=== PATIENT | male | born 1935 | race Caucasian/White ===

== ENCOUNTER 2020-10-03 09:49 | Day surgery (SDC) | payer MEDICARE, SELFPAY ==
--- NOTE | 2020-09-28 11:05 | EKG12_ITS ---
Test Reason : PRE OP Blood Pressure : / mmHG Vent. Rate : 053 BPM Atrial Rate : 053 BPM P-R Int : 254 ms QRS Dur : 132 ms QT Int : 454 ms P-R-T Axes : 052 040 021 degrees QTc Int : 426 ms Sinus bradycardia with 1st degree A-V block Right bundle branch block Abnormal ECG Confirmed by MAMI LAW, DONNA ([id number]), film and video editor CYDNEY HUGHES ([id number]) on 10/01/2020 12:29:19 PM Referred By: Raphael Peraza Confirmed By:DONNA BOLAÑOS MD
[2020-09-28 11:16] LABS: Hematocrit 39.7 % (40-54); Mean Corp Hgb Conc 32.7 g/dL (32-36); Mean Corpuscular Hgb 30.5 pg (27.0-32.0); Mean Corpuscular Volume 93.2 fL (80-94); Mean Platelet Vol. 11.7 fl (6.2-12.0); POSITIVE COUNT YES; Platelet Count 79 K/mm3 (150-450); RBC Distribution Width CV 13.6 % (11.6-14.6); RBC Distribution Width SD 46.2 fl (35.1-43.9); Red Blood Count 4.26 M/mm3 (4.6-6.2); White Blood Count 4.9 K/mm3 (4.4-11.0)
[2020-09-28 11:18] LABS: Scan Indicated on CBC? Y/N YES- FLAGS NOTED
[2020-09-28 11:27] LABS: International Normalized Ratio 1.3; Prothrombin Time (Protime)PT. 15.1 SECONDS (11.7-14.9)
[2020-09-28 11:28] LABS: Partial Thromboplast Time 33.4 Seconds (24.1-36.2)
[2020-09-28 11:36] LABS: Hemoglobin A1c 6.5 % (3.8-5.6)
[2020-09-28 11:52] LABS: ALB/GLOB Ratio 0.7 RATIO (0.9-2.4); AST(SGOT) 58 U/L (15-37); Alanine Aminotransfer ALT/SGPT 63 U/L (16-61); Alkaline Phosphatase 118 U/L (45-117); Anion Gap 3 (5-15); BUN 18 mg/dL (7-18); BUN/Creat Ratio 17.8 RATIO (10-20); Calcium,Total 8.7 mg/dL (8.5-10.1); Chloride 106 mmol/L (98-107); Creatinine, Serum 1.01 mg/dL (0.70-1.30); EST Glomerular Filtration Rate 75 mL/min (>60); Est Glom Filt Rate - Afr Amer 90 mL/min (>60); Globulin 4.1 g/dL (2.2-4.2); Glucose 96 mg/dL (74-106); Magnesium 1.8 mg/dL (1.6-2.6); Phosphorus 2.5 mg/dL (2.5-4.9); Potassium 3.7 mmol/L (3.5-5.1); Protein, Total 7.1 g/dL (6.4-8.2); Sodium Level 140 mmol/L (136-145)
[2020-10-03] VITALS (7 sets, daily range): BP systolic 140–174; BP diastolic 64–87; PULSE 52–69; RESP 16; TEMP 35.6–36.7; O2SAT 96–100; BMI 27.9
--- NOTE | 2020-10-03 | BLB_PTH ---
PATIENT: RENUKA CONLEY [place] [facility] [place][id number] AGE/SX: 85/M ROOM: RE10/03/[address]: Dr. Raphael Peraza MD : [id number] BED: DIS: 10/03/2020 SPEC #: [id number] RECD: 10/04/20 07:53 STATUS: KRISTIAN REDelicia #: [id number] ROXANN: 10/03/20 00:[address]: Raphael Peraza DEPT: SURGICAL PATHOLOGY RECD BY: Pj Woody ENTERED: 10/04/20 08:43 SP TYPE: TURB OTHR DR: Dr. Nicholas Woody MD Tissues: A - Urinary bladder, NOS B - Urinary bladder, NOS Procedures: Surgery Specimen Level IV Surgery Specimen Level V HEADER OPERATION: Cysto, transurethral resection bladder, [employer] PRE-OP DIAGNOSIS: Bladder mass TISSUE SUBMITTED: A ? Bladder tumor, B ? Deeper bladder muscle resection MICROSCOPIC DIAGNOSIS A. Bladder tumor, TUR: Papillary urothelial carcinoma. See cancer summary in the comment section. B. 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 Negative for malignancy. SJ:emelia 10/05/2020 COMMENT BLADDER CANCER (TUR) SUMMARY (including specimens A & B): Procedure: Transurethral resection of bladder (TURBT) Tumor site: Not specified Histologic type: Papillary urothelial carcinoma, invasive Histologic grade: Low grade (2/3) Tumor configuration: Papillary Muscularis propria presence: Muscularis propria (detrusor muscle) present and free of tumor (specimen B only). Lymphvascular invasion: Not identified Tumor extension: Tumor invades the lamina propria (subepithelial connective tissue). Additional pathologic findings: Chronic inflammation. The above summary is in compliance with [employer] (CAP) Cancer Protocols Checklist and [place] [employer] on Cancer (AJCC), Staging Manual, 8th Ed. Case has been reviewed in consultation with Dr. Garrett who concurs with the above diagnosis. IDC:AM MICROSCOPIC DESCRIPTION Slides are reviewed. GROSS DESCRIPTION A - Received in fixative is one container labeled with the patient's name and designated bladder tumor. The specimen consists of multiple irregular fragments of dempsey-brown soft tissue that in aggregate measure 7.5 x 3 x 0.3 cm. The entire specimen is submitted in three cassettes. B - Received in fixative is one container labeled with the patient's name and designated deeper bladder muscle resection. The specimen consists of a piece of dempsey soft tissue measuring 1 x 0.3 x 0.1 cm. The specimen is totally submitted in one cassette. / MARI:emelia 10/04/20 TC:0 CPT: 46409, 37406
[2020-10-03] MEDS: Lactated Ringers 1,000 ML 75 ML IV (10:20)
[2020-10-03 11:06] LABS: Bedside Glucose 151 mg/dL (70-110)
--- NOTE | 2020-10-03 13:29 | PCM.HP.STD ---
HPI - General HPI Narrative RENUKA CONLEY, is a 85 M who presents for transurethral resection of a large tumor seen on CAT scan. [facility] Medical History (Updated 10/03/20 @ 13:[address] Raphael Peraza MD) Cirrhosis Diabetes Former smoker Hypertension Leg cramps Restless legs TIA (transient ischemic attack) Wears glasses Home Medications Janumet 1 tab PO DAILY 09/26/20 [History Last Taken 10/02/20 09:00] amlodipine-benazepril 1 cap PO DAILY 09/26/20 [History Last Taken 10/03/20 08:00] atorvastatin 40 mg PO QHS 09/26/20 [History Last Taken 10/02/20 09:00] finasteride 5 mg PO DAILY 09/26/20 [History Last Taken 10/02/20 09:00] furosemide 20 mg PO QODAY 09/26/20 [History Last Taken 10/02/20 09:00] glimepiride 2 mg PO PRN PRN 09/26/20 [History Last Taken Unknown] nadolol 40 mg PO DAILY 09/26/20 [History Last Taken 10/03/20 08:00] triamterene-hydrochlorothiazid 1 cap PO DAILY 09/26/20 [History Last Taken 10/02/20 09:00] ciprofloxacin HCl [Cipro] 500 mg PO BID #10 tab 10/03/20 [Rx Last Taken Unknown] Allergy/AdvReac Type Severity Reaction Status Date / Time alfuzosin Allergy Other Verified 10/03/20 10:26 aspirin [ASA] Allergy Other Verified 10/03/20 10:26 ibuprofen Allergy Other Verified 10/03/20 10:26 BLOOD THINNERS Allergy Other Uncoded 10/03/20 10:26 Surgical History (Updated 09/26/20 @ 13:20 by Odalis Kline) History of coronary artery stent placement Hx of cardiac cath Hx of foot surgery Social History Smoking Status: Former smoker ROS Constitutional Constitutional: Denies chills, fever(s) or malaise Eyes Eyes: Denies blurry vision or change in vision ENT HEENT: Reports none Cardiovascular Cardiovascular: Denies chest pain or palpitations Respiratory/Chest Respiratory/Chest: Denies cough or shortness of breath with exertion Gastrointestinal Gastrointestinal: Denies abdominal pain, constipation or diarrhea Genitourinary Genitourinary: Reports hematuria Musculoskeletal Musculoskeletal: Denies back pain, joint stiffness or joint swelling Integumentary Integumentary: Denies dry skin, jaundice, lesions or rash Neurologic Neurologic: Denies confusion, syncope or weakness Psychiatric Psychiatric: Reports none; Denies anxiety or depression Endocrine Endocrinology: Denies excessive sweating, fatigue or flushing Hematologic/Lymphatic Hematologic/Lymphatic: Denies anemia, easy bleeding or easy bruising Vital Signs Vital Signs Vital Signs: 10/03/20 10:30 Temperature 98.1 F Temperature Source Temporal Pulse Rate 61 Respiratory Rate 16 Respiratory Pattern Normal Blood Pressure 160/64 H Blood Pressure Mean 96 Blood Pressure Source Monitor Blood Pressure Position Sitting Blood Pressure Location Right Arm Pulse Ox 100 Oxygen Delivery Method Room Air Physical Exam Const alert and oriented x3 General Appearance: cooperative HEENT normocephalic, head/scalp atraumatic, EAC's normal and TM's normal bilaterally Eyes PERRL and EOMs intact bilaterally Pupil: sluggish Neck no lymphadenopathy, supple and no JVD General: trachea midline Lymph Lymphatic: no lymphadenopathy noted, lymphedema and lymphadenopathy Resp normal respiratory effort, normal air movement and clear to auscultation bilaterally Cardio regular rate, regular rhythm and peripheral pulses 2+ throughout GI soft to palpation, non-tender and non-distended Extremity normal capillary refill and no clubbing, cyanosis or edema General Extremity: no tenderness to palpation of joints or extremities Skin no rashes or lesions noted General Skin Exam: turgor normal Lesions: no lesions Rashes: no rashes Neuro CN's II-XII intact bilaterally Speech: speech normal Motor Exam: strength 5/5 throughout; Negative for general weakness Psych thought process normal, cooperative and affect normal Appearance: appropriate Lab / Micro Data Result Diagrams: 09/28/20 10:55 09/28/20 10:55 Labs: Laboratory Results - last 24 hr 10/03/20 10:38 POC Glucose 151 H Assessment & Plan Assessment/Plan (1) Bladder tumor: Status: Acute Code(s): D49.4 - Neoplasm of unspecified behavior of bladder Plan: Plan to proceed with transurethral resection of a large bladder tumor.
--- NOTE | 2020-10-03 13:31 | PCM.DC ---
Discharge Instructions Outpatient Procedure Reason For Visit: CYSTO TURBT OLYMPUS Procedure: Urology Diet Discharge Diet: No restrictions Activity Discharge Activity: May not drive while taking narcotic pain medications. (for 3 days.) May shower in (days): 1 Dressing / Incision Call your doctor if your incision/area has: Continuous Slow Oozing, Increased Pain/ Swelling, Increased Redness and Foul Smelling Discharge Call your doctor if you observe: Fever of 101 or Higher, Numbness or Tingling, Shortness of breath, Dizziness, Calf discomfort and Uncontrolled pain Cleanse incision/area with: Keep Dressing Clean & Dry Follow Up Care Please Follow Up With: Raphael Peraza MD When: Call [phone] for an appointment Test Results: Test results from this visit will be discussed in further detail at your follow-up appointment, if applicable. Discharge Plan Admission Primary Reason for Your Visit: Transurethral section of bladder tumor Attending Provider: Raphael Peraza Primary Care Provider: Nicholas Woody Instructions Patient Instructions: Transurethral Bladder Tumor Resection Discharge Orders/Prescriptions Prescriptions: New ciprofloxacin HCl [Cipro] 500 mg tablet 500 mg PO BID Qty: 10 RF: 0 Continued atorvastatin 40 mg tablet 40 mg PO QHS RF: 0 amlodipine-benazepril 2.5-10 mg capsule 1 cap PO DAILY RF: 0 triamterene-hydrochlorothiazid 37.5-25 mg capsule 1 cap PO DAILY RF: 0 glimepiride 2 mg tablet 2 mg PO PRN PRN (Reason: DIABETES) RF: 0 nadolol 40 mg tablet 40 mg PO DAILY RF: 0 furosemide 20 mg tablet 20 mg PO QODAY RF: 0 finasteride 5 mg tablet 5 mg PO DAILY RF: 0 Janumet 50-500 mg tablet 1 tab PO DAILY RF: 0 Referrals: Nicholas Woody MD [Primary Care Provider] - Disposition Discharge Orders: Discharge Patient (Routine); Ordered 10/03/20 Ordered By: Dr. Raphael Peraza
[2020-10-03] MEDS: Cefazolin 2 GM in 0.9% Normal Saline 100 ML IV (13:33)
[2020-10-03] MEDS: Lactated Ringers 1,000 ML 100 ML IV ×2 (13:41→14:31)
--- NOTE | 2020-10-03 14:26 | PCM.OPRPT ---
Problems Associated Problem List Diagnoses (1) Bladder tumor: Report of Operation Date of Procedure: 10/03/20 Pre-Operative Diagnosis: Bladder mass Post-Operative Diagnosis: Same Surgery/Procedure Performed:: Transurethral resection of a large bladder mass Description of Surgical Findings:: Dr Peraza Patient presented to the hospital for treatment of a tumor that was found in the bladder with a very large bladder tumor. Patient understands is possible it may not be able to resect the entire tumor. Patient also understands is possible that the patient may need multiple procedures or more invasive procedures to cure him of this cancer. Patient was taken back to the operating room after smooth induction of anesthesia the patient was placed supine on the table. The patient was placed in dorsolithotomy position. The urethra and genitals prepped and draped in usual sterile fashion. He had a hypospadias. I went into the bladder with a 30 degree lens and a cystoscope and identified the tumor the tumor was about 6 centimeters in size and occupying mostly the right trigone, bladder neck and right lateral wall of the bladder. The right and left ureteral orifice were identified. The tumor was involved in the left ureteral orifice and used a wire to identify orfice to facilitate resection. I then placed the resectoscope and the bladder and resected the entire tumor down to the muscle. And then cauterized the resection base to obtained hemostasis. We then placed the catheter in the bladder and the patient was taken back to the PACU in stable condition. Type of Anesthesia: General Specimen's removed: bladder tumor and deep resection Drains: none Estimated Blood Loss (mL): minimal Complications none Admit VTE Documentation VTE Present on Admission: No VTE Mechan Device Prophylaxis: SCD's
[2020-10-03 14:51] LABS: Bedside Glucose 127 mg/dL (70-110)
[2020-10-03] MEDS: oxyCODONE 5 MG Tablet PO (16:25)
== END 2020-10-03 17:15 ==
LOC: SDC 09:51 → AC 09:51
PROVIDERS: Anesthesiology; PCP Family Medicine; Referring Provider Urology; Visit Provider Urology
PROC: 0TBB8ZZ Excision of Bladder, Via Natural or Artificial Opening Endoscopic (ICD-10-PCS; CPT 52240; principal; 2020-10-03 12:05)
DX: C67.9 Malignant neoplasm of bladder, unspecified (principal); I10 Essential (primary) hypertension; E11.9 Type 2 diabetes mellitus without complications; G25.81 Restless legs syndrome; K74.60 Unspecified cirrhosis of liver; Z86.73 Personal history of transient ischemic attack (TIA), and cerebral infarction without residual deficits; Z79.82 Long term (current) use of aspirin; Z79.84 Long term (current) use of oral hypoglycemic drugs; Z79.899 Other long term (current) drug therapy; Z87.891 Personal history of nicotine dependence
CPT/HCPCS: 52240; 36415; 80053; 82962; 83036; 83735; 84100; 85027; 85610; 85730; 88305; 88307; 93005; J7120; C1769; J2405

== ENCOUNTER 2020-10-04 04:51 | Emergency (ER) | payer MEDICARE, SELFPAY ==
[2020-10-03 10:30] VITALS: BMI 27.9
[2020-10-04 04:51] VITALS: BP 164/77; PULSE 74; RESP 18; TEMP 37.6; O2SAT 97; BMI 28.4
--- NOTE | 2020-10-04 04:55 | EDS_ITS ---
HPI History of Present Illness Chief Complaint: Complaint Informant: patient Narrative Narrative: Patient presents with acute urinary retention. He tells me he had a bladder procedure done yesterday morning. It appears per records he had a bladder tumor. He was able to urinate after the procedure so he was discharged home. He has not urinated since going home. He has small amount of urine that leaked out of the penis that was bloody. He is having some suprapubic pain. History is given mostly by the and the patient is very hard of hearing. He denies any nausea, vomiting, diarrhea or constipation. [facility] Medical History Cirrhosis Diabetes Former smoker Hypertension Leg cramps Restless legs TIA (transient ischemic attack) Wears glasses Home Medications Janumet 1 tab PO DAILY 09/26/20 [History Last Taken 10/02/20 09:00] amlodipine-benazepril 1 cap PO DAILY 09/26/20 [History Last Taken 10/03/20 08:00] atorvastatin 40 mg PO QHS 09/26/20 [History Last Taken 10/02/20 09:00] finasteride 5 mg PO DAILY 09/26/20 [History Last Taken 10/02/20 09:00] furosemide 20 mg PO QODAY 09/26/20 [History Last Taken 10/02/20 09:00] glimepiride 2 mg PO PRN PRN 09/26/20 [History Last Taken Unknown] nadolol 40 mg PO DAILY 09/26/20 [History Last Taken 10/03/20 08:00] triamterene-hydrochlorothiazid 1 cap PO DAILY 09/26/20 [History Last Taken 10/02/20 09:00] ciprofloxacin HCl [Cipro] 500 mg PO BID #10 tab 10/03/20 [Rx Last Taken Unknown] Allergy/AdvReac Type Severity Reaction Status Date / Time alfuzosin Allergy Other Verified 10/04/20 04:57 aspirin [ASA] Allergy Other Verified 10/04/20 04:57 ibuprofen Allergy Other Verified 10/04/20 04:57 BLOOD THINNERS Allergy Other Uncoded 10/04/20 04:57 Surgical History History of coronary artery stent placement Hx of cardiac cath Hx of foot surgery Social History Smoking Status: Former smoker ROS ROS ED Constitutional Constitutional ED: Denies chills or fever(s) Eyes Eyes: Denies blurry vision, change in vision or diplopia ENT ENT ED: Denies ear pain, rhinorrhea or sore throat Cardiovascular Cardiovascular: Denies chest pain or palpitations Respiratory/Chest Respiratory/Chest: Denies cough, dyspnea or sputum Gastrointestinal Gastrointestinal: Denies abdominal pain, diarrhea, nausea or vomiting Genitourinary Genitourinary ED: Reports other Details: Urinary retention Musculoskeletal Musculoskeletal: Denies back pain or neck pain Integumentary Denies change in pigmentation or rash Neurologic Neurologic: Denies headache(s), numbness or weakness Psychiatric Psychiatric: Denies anxiety or depression Endocrine Endocrinology: Denies polydipsia or polyuria EXAM Physical Exam Const Vital Signs: 10/04/20 04:51 Temperature 99.6 F H Temperature Source Temporal Pulse Rate 74 Respiratory Rate 18 Blood Pressure 164/77 H Blood Pressure Mean 106 Pulse Ox 97 Oxygen Delivery Method Room Air Positive well nourished and well developed General Appearance ED: well developed HEENT normocephalic and atraumatic Eyes PERRL and EOMs intact bilaterally Neck supple Resp normal respiratory effort and clear to auscultation bilaterally Cardio regular rate, regular rhythm and no murmurs GI Palpation: soft and tender suprapubic no CVA tenderness Back/Spine Cervical Spine: Negative for cervical spine tenderness Extremity normal to inspection General Extremety ED: Negative for tenderness Neuro oriented x3 Neuro Narrative: Hard of hearing Sensorium / Orientation: alert Psych mental status grossly normal Skin Lesions: no lesions Rashes: no rashes MDM MDM MDM Narrative Medical decision making narrative: Nursing as well as myself were unable to place the Tobar catheter. He has a known hypospadia per the dictation from the surgery by Dr. Peraza yesterday. However, I was unable to advance a catheter. I did discuss with Dr. Peraza and he graciously came into the emergency depa rtment and was able to place the catheter. Bloody urine returned without much clots. This will be irrigated until clear. The patient was unable to any medications. He is already on antibiotics from the surgery. He will have the Tobar catheter out next week. Discharge Plan Triage Chief Complaint: Complaint ED Provider: Stefan Harris Dx/Rx/DC Orders Clinical Impression: Acute urinary retention, Hematuria, gross Instructions: ED Tobar Catheter, Care Prescriptions: No Action atorvastatin 40 mg tablet 40 mg PO QHS RF: 0 amlodipine-benazepril 2.5-10 mg capsule 1 cap PO DAILY RF: 0 triamterene-hydrochlorothiazid 37.5-25 mg capsule 1 cap PO DAILY RF: 0 glimepiride 2 mg tablet 2 mg PO PRN PRN (Reason: DIABETES) RF: 0 nadolol 40 mg tablet 40 mg PO DAILY RF: 0 furosemide 20 mg tablet 20 mg PO QODAY RF: 0 finasteride 5 mg tablet 5 mg PO DAILY RF: 0 Janumet 50-500 mg tablet 1 tab PO DAILY RF: 0 ciprofloxacin HCl [Cipro] 500 mg tablet 500 mg PO BID Qty: 10 RF: 0 Primary Care Provider: Nicholas Woody Referrals: Raphael Peraza MD [STAFF PHYSICIAN] - Nicholas Woody MD [Primary Care Provider] - Disposition Disposition: Home, self care
== END 2020-10-04 06:31 | disposition home or self-care (01) ==
PROVIDERS: Emergency Provider Emergency Medicine; PCP Family Medicine
DX: R33.9 Retention of urine, unspecified (principal); R31.0 Gross hematuria; Z98.890 Other specified postprocedural states; I10 Essential (primary) hypertension; E11.9 Type 2 diabetes mellitus without complications; K74.60 Unspecified cirrhosis of liver; G25.81 Restless legs syndrome; Z86.73 Personal history of transient ischemic attack (TIA), and cerebral infarction without residual deficits; Z79.84 Long term (current) use of oral hypoglycemic drugs; Z79.899 Other long term (current) drug therapy; Z87.891 Personal history of nicotine dependence
CPT/HCPCS: 51702; 99283

== ENCOUNTER 2020-10-07 06:15 | Inpatient (IN) | payer MEDICARE, SELFPAY ==
[2020-10-07] VITALS (8 sets, daily range): BP systolic 131–168; BP diastolic 56–89; PULSE 62–76; RESP 14–18; TEMP 36.5–37.6; O2SAT 96–99; BMI 30.1; BMI 29.3
--- NOTE | 2020-10-07 06:31 | CT_ITS ---
STUDY: CT ABDOMEN AND PELVIS WITHOUT CONTRAST REASON FOR EXAM: Male, 85 years old. Pain RADIATION DOSAGE (If Supplied By Facility): CTDIvol = ( 10.73 ) mGy, DLP = ( 546.71 ) mGycm TECHNIQUE: Transaxial images were obtained from the dome of the diaphragm to the symphysis pubis without oral contrast, and without intravenous contrast. Sagittal and coronal images were reconstructed. Individualized dose optimization techniques were used for this CT. COMPARISON: None. FINDINGS: Subsegmental atelectases are noted in the right and left lung bases. The visualized portions of the heart are within normal limits. There is a diffuse contour abnormality of the liver consistent with cirrhotic changes. There are surgical clips in the gallbladder fossa consistent with a prior cholecystectomy. There is mild splenomegaly. Normal pancreas. Normal bilateral adrenal glands. Normal right kidney. Normal left kidney. Normal visualized stomach. Normal small intestine. Normal colon. There is non-visualization of the appendix. There is diffuse atherosclerotic calcification of the abdominal aorta, with 3 cm infrarenal abdominal aortic aneurysm. Normal inferior vena cava. Normal retroperitoneum. Normal urinary bladder. There is a left-sided inguinal hernia containing adipose tissue. Normal osseous structures. CT/Abdomen/Pelvis without Cont IMPRESSION: Liver cirrhosis with mild splenomegaly. Electronically Signed: Linda Vázquez MD at 7:41 EDT Tel , Service support ,
[2020-10-07 06:38] LABS: Absolute Lymphocyte Count 0.69 X10^3/uL (0.83-4.51); Absolute Neutrophil Count 7.1 X10^3/uL (2.0-7.7); Basophil# 0.03 X10^3/uL; Basophil% 0.3 % (0-1); Eosinophil# 0.11 X10^3/uL; Eosinophils% 1.2 % (0-5); Hematocrit 39.5 % (40-54); Hemoglobin 13.3 g/dL (13.0-16.5); Lymphocyte # 0.69 X10^3/ul (0.83-4.51); Lymphocyte % 7.7 % (19-41); Mean Corp Hgb Conc 33.7 g/dL (32-36); Mean Corpuscular Hgb 30.9 pg (27.0-32.0); Mean Corpuscular Volume 91.9 fL (80-94); Mean Platelet Vol. 11.7 fl (6.2-12.0); Monocyte# 0.98 X10^3/uL; NRBC Flagged by Analyzer 0 % (0-5); Neutrophil # 7.05 X10^3/uL (2.7-7.7); Neutrophil % 79.1 % (47-70); POSITIVE COUNT YES; Platelet Count 99 K/mm3 (150-450); RBC Distribution Width CV 13.5 % (11.6-14.6); RBC Distribution Width SD 45.6 fl (35.1-43.9); White Blood Count 8.9 K/mm3 (4.4-11.0)
[2020-10-07 06:39] LABS: Differential Indicated SCAN CRITERIA MET
[2020-10-07 06:42] LABS: Bacteria 0 SEEN /hpf (None Seen); Mucous, Urine 0 SEEN /hpf (<or=2+); Red Blood Cells-Urine 0 SEEN /hpf (0-5); Squamous Epithelial Cells - UA 0 SEEN /hpf (0-5); White Blood Cells 0 SEEN /hpf (0-5)
[2020-10-07 06:44] LABS: Color, Urine Yellow (Yellow); Glucose, Dipstick Normal (Normal); Ketone-Dipstick Negative (Negative); Leukocyte Esterase-Dipstick Negative /ul (Negative); Nitrite-Dipstick Negative (Negative); Occult Blood-Urine Negative /ul (Negative); Protein-Dipstick Negative (Negative); Urine Bilirubin Dipstick Negative (Negative); Urine Clarity Clear (Clear); Urine Urobilinogen Normal (Normal)
[2020-10-07] MEDS: Morphine 4 MG/ML Syringe IV (06:44)
[2020-10-07] MEDS: Ondansetron 4 MG/2 ML Vial IV (06:44)
[2020-10-07 06:50] LABS: ALB/GLOB Ratio 0.6 RATIO (0.9-2.4); AST(SGOT) 38 U/L (15-37); Alanine Aminotransfer ALT/SGPT 35 U/L (16-61); Albumin, Serum 2.7 g/dL (3.2-5.0); Alkaline Phosphatase 112 U/L (45-117); Anion Gap 6 (5-15); BUN 38 mg/dL (7-18); BUN/Creat Ratio 17.1 RATIO (10-20); Calcium,Total 8.7 mg/dL (8.5-10.1); Chloride 101 mmol/L (98-107); Creatinine, Serum 2.22 mg/dL (0.70-1.30); EST Glomerular Filtration Rate 30 mL/min (>60); Est Glom Filt Rate - Afr Amer 36 mL/min (>60); Estimated Creatinine Clearance 22.35 ml/min; Globulin 4.4 g/dL (2.2-4.2); Glucose 112 mg/dL (74-106); Lipase 93 U/L (73-393); Potassium 4.4 mmol/L (3.5-5.1); Protein, Total 7.1 g/dL (6.4-8.2); Sodium Level 134 mmol/L (136-145)
[2020-10-07 06:52] LABS: Platelet Estimate MOD DEC (ADEQ)
[2020-10-07 06:54] LABS: Lactic Acid 1.7 mmol/L (0.4-1.9)
--- NOTE | 2020-10-07 06:58 | ED.VIS.GI ---
HPI <Dr. Royal Trujillo DO - Last Filed: 10/07/20 07:04> HPI - GI History of Present Illness Chief Complaint: Abd Pain Informant: patient Limited: other (Patient is hard of hearing) Abdominal Pain/Flank Pain Onset: Yesterday Context: Gradual Onset Timing: Continuous Location: RUQ and Right Flank Worsened by: Nothing Relieved by: Nothing Nausea/Vomiting/Emesis GI Symptom: Negative for Nausea and Vomiting Diarrhea/Melena/Hematochezia GI Symptom: Negative for Diarrhea, Melena and Hematochezia Associated Symptoms Associated Symptoms: Negative for Dysuria and Hematuria Narrative Narrative: Patient presents with right upper quadrant and right flank pain that began yesterday. Patient describes the pain is sharp. Patient states the pain has been constant. Patient admits to decreased appetite and dry mouth. Patient denies any radiation of the pain. Patient denies any nausea or vomiting. Patient denies any diarrhea or constipation. Patient admits to a chronic cough but denies any chest pain or shortness of breath. Patient denies any fevers or chills. Patient states he was seen here couple days ago for urinary retention and currently has a Tobar catheter in place. [facility] <Dr. Royal Trujillo DO - Last Filed: 10/07/20 07:04> [facility] Medical History Cirrhosis Diabetes Former smoker Hard of hearing Hard of hearing Hypertension Leg cramps Restless legs TIA (transient ischemic attack) Wears glasses Home Medications Janumet 1 tab PO DAILY 09/26/20 [History Last Taken 10/02/20 09:00] amlodipine-benazepril 1 cap PO DAILY 09/26/20 [History Last Taken 10/03/20 08:00] atorvastatin 40 mg PO QHS 09/26/20 [History Last Taken 10/02/20 09:00] finasteride 5 mg PO DAILY 09/26/20 [History Last Taken 10/02/20 09:00] furosemide 20 mg PO QODAY 09/26/20 [History Last Taken 10/02/20 09:00] glimepiride 2 mg PO PRN PRN 09/26/20 [History Last Taken Unknown] nadolol 40 mg PO DAILY 09/26/20 [History Last Taken 10/03/20 08:00] triamterene-hydrochlorothiazid 1 cap PO DAILY 09/26/20 [History Last Taken 10/02/20 09:00] ciprofloxacin HCl [Cipro] 500 mg PO BID #10 tab 10/03/20 [Rx Last Taken Unknown] ascorbic acid (vitamin C) [Vitamin C] 100 mg PO DAILY 10/07/20 [History Last Taken Unknown] calcium carbonate-vitamin D3 [Calcium 500 With D] 1 tab PO BID 10/07/20 [History Last Taken Unknown] Allergy/AdvReac Type Severity Reaction Status Date / Time alfuzosin Allergy Other Verified 10/07/20 06:25 aspirin [ASA] Allergy Other Verified 10/07/20 06:25 ibuprofen Allergy Other Verified 10/07/20 06:25 BLOOD THINNERS Allergy Other Uncoded 10/07/20 06:25 Surgical History History of coronary artery stent placement Hx of cardiac cath Hx of foot surgery Social History Smoking Status: Former smoker ROS <Dr. Royal Trujillo DO - Last Filed: 10/07/20 07:04> ROS ED Constitutional Constitutional ED: Denies chills or fever(s) ENT ENT ED: Denies rhinorrhea or sore throat Cardiovascular Cardiovascular: Denies chest pain or palpitations Respiratory/Chest Respiratory/Chest: Reports cough; Denies dyspnea Gastrointestinal Gastrointestinal: Reports abdominal pain; Denies nausea or vomiting Genitourinary Genitourinary ED: Denies dysuria or hematuria Musculoskeletal Musculoskeletal: Reports back pain; Denies neck pain Integumentary Denies abscess or rash Neurologic Neurologic: Denies headache(s) or weakness Allergic/Immunologic Allergic/Immunologic ED: Denies mouth swelling or urticaria EXAM <Dr. Royal Trujillo DO - Last Filed: 10/07/20 07:04> Physical Exam Const Vital Signs: 10/07/20 06:17 10/07/20 06:22 Temperature 99.6 F H 99.6 F H Temperature Source Oral Oral Pulse Rate 65 65 Respiratory Rate 17 18 Blood Pressure 168/89 H 168/89 H Blood Pressure Mean 115 115 Pulse Ox 99 98 Oxygen Delivery Method Room Air Room Air Positive well nourished and well developed General Appearance ED: well developed HEENT Reports moist mucous membranes normocephalic Neck supple and no JVD Resp normal respiratory effort and clear to auscultation bilaterally Cardio regular rate and regular rhythm GI non-distended Auscultation: normoactive bowel sounds Palpation: soft and tender RUQ; Negative for guarding or rebound tenderness present Back/Spine General Back: CVA tenderness right Extremity General Extremety ED: Negative for edema or tenderness General Extremity: Negative for edema Neuro CN's II-XII intact bilaterally, moves all extremities and no sensory deficits noted Sensorium / Orientation: alert, oriented to person, oriented to place and oriented to time <Dr. Casimiro Ruiz MD - Last Filed: 10/07/20 08:59> Physical Exam Const Vital Signs: 10/07/20 06:17 10/07/20 06:22 Temperature 99.6 F H 99.6 F H Temperature Source Oral Oral Pulse Rate 65 65 Respiratory Rate 17 18 Blood Pressure 168/89 H 168/89 H Blood Pressure Mean 115 115 Pulse Ox 99 98 Oxygen Delivery Method Room Air Room Air MDM <Dr. Royal Trujillo DO - Last Filed: 10/07/20 07:04> MDM MDM Narrative Medical decision making narrative: CBC comprehensive metabolic profile were obtained and were essentially within normal limits. Creatinine was elevated at 2.22. This was increased compared to previous results. Lactate was normal. Urinalysis does not show any evidence of urinary tract infection. CT scan of the abdomen and pelvis was obtained and is pending. Care of the patient was turned over to the oncoming physician pending CT results. Patient will likely need to be admitted for acute kidney injury. I will contact the hospitalist. Lab Data Attestation: I reviewed the patient's lab results. Labs: Laboratory Results - last 24 hr 10/07/20 10/07/20 10/07/20 06:25 06:25 06:25 WBC 8.9 RBC 4.30 L Hgb 13.3 Hct 39.5 L MCV 91.9 MCH 30.9 MCHC 33.7 RDW Std Deviation 45.6 H RDW Coeff of Marlyn 13.5 Plt Count 99 L MPV 11.7 Immature Gran % (Auto) 0.700 Neut % (Auto) 79.1 H Lymph % (Auto) 7.7 L Gordon % (Auto) 11.0 H Eos % (Auto) 1.2 Baso % (Auto) 0.3 Absolute Neuts (auto) 7.1 Absolute Lymphs (auto) 0.69 L Nucleated RBC % 0 Platelet Estimate MOD DEC Sodium 134 L Potassium 4.4 Chloride 101 Carbon Dioxide 27.0 Anion Gap 6 BUN 38 H Creatinine 2.22 H Estim Creat Clear Calc 22.35 Est GFR (MDRD) Af Amer 36 L Est GFR (MDRD) Non-Af 30 L BUN/Creatinine Ratio 17.1 Glucose 112 H Lactic Acid 1.7 Calcium 8.7 Total Bilirubin 2.80 H AST 38 H ALT 35 Alkaline Phosphatase 112 Total Protein 7.1 Albumin 2.7 L Globulin 4.4 H Albumin/Globulin Ratio 0.6 L Lipase 93 Urine Color Urine Clarity Urine pH Ur Specific [place] Urine Protein Urine Glucose (UA) Urine Ketones Urine Occult Blood Urine Nitrite Urine Bilirubin Urine Urobilinogen Ur Leukocyte Esterase Urine RBC Urine WBC Ur Squamous Epith Cells Urine Bacteria Urine Mucus 10/07/20 06:35 WBC RBC Hgb Hct MCV MCH MCHC RDW Std Deviation RDW Coeff of Marlyn Plt Count MPV Immature Gran % (Auto) Neut % (Auto) Lymph % (Auto) Gordon % (Auto) Eos % (Auto) Baso % (Auto) Absolute Neuts (auto) Absolute Lymphs (auto) Nucleated RBC % Platelet Estimate Sodium Potassium Chloride Carbon Dioxide Anion Gap BUN Creatinine Estim Creat Clear Calc Est GFR (MDRD) Af Amer Est GFR (MDRD) Non-Af BUN/Creatinine Ratio Glucose Lactic Acid Calcium Total Bilirubin AST ALT Alkaline Phosphatase Total Protein Albumin Globulin Albumin/Globulin Ratio Lipase Urine Color Yellow Urine Clarity Clear Urine pH 6.0 Ur Specific [place] 1.010 Urine Protein Negative Urine Glucose (UA) Normal Urine Ketones Negative Urine Occult Blood Negative Urine Nitrite Negative Urine Bilirubin Negative Urine Urobilinogen Normal Ur Leukocyte Esterase Negative Urine RBC 0 SEEN Urine WBC 0 SEEN Ur Squamous Epith Cells 0 SEEN Urine Bacteria 0 SEEN Urine Mucus 0 SEEN Radiography Diagnostic Testing: Radiology Impression Abdomen/Pelvis CT 10/07/20 06:31 IMPRESSION: Liver cirrhosis with mild splenomegaly. Electronically Signed: Linda Vázquez MD at 7:41 EDT Tel , Service support , <Dr. Casimiro Ruiz MD - Last Filed: 10/07/20 08:59> [facility] MDM Narrative Medical decision making narrative: I took checkout on this patient reevaluated him. He is comfortable but states he does still have right lower quadrant pain, where he is tender. The rest of his abdomen is benign and nontender. CT results are below, basically consistent with cirrhosis that was already noted, and otherwise negative for anything acute. He does have acute kidney injury and it is somewhat of a prerenal pattern, indicating the possibility of dehydration here which would be consistent with his history of very little oral fluid intake since his surgery 4 days ago according to his . Of note he does have a significant amount of stool in the colon on the images although his colon is not radiographically abnormal. He has not had a bowel movement since his surgery. Discussed with hospitalist, we did give the patient an enema soapsuds here in emergency department but this was somewhat limited since the patient can barely hear, and had trouble following nursing instructions with regards to the enema. The rest of the labs were unremarkable, his total bilirubin elevation can be explained by his cirrhosis. Will be admitted to floor in stable condition. Lab Data Attestation: I reviewed the patient's lab results. Labs: Laboratory Results - last 24 hr 10/07/20 10/07/20 10/07/20 06:25 06:25 06:25 WBC 8.9 RBC 4.30 L Hgb 13.3 Hct 39.5 L MCV 91.9 MCH 30.9 MCHC 33.7 RDW Std Deviation 45.6 H RDW Coeff of Marlyn 13.5 Plt Count 99 L MPV 11.7 Immature Gran % (Auto) 0.700 Neut % (Auto) 79.1 H Lymph % (Auto) 7.7 L Gordon % (Auto) 11.0 H Eos % (Auto) 1.2 Baso % (Auto) 0.3 Absolute Neuts (auto) 7.1 Absolute Lymphs (auto) 0.69 L Nucleated RBC % 0 Platelet Estimate MOD DEC Sodium 134 L Potassium 4.4 Chloride 101 Carbon Dioxide 27.0 Anion Gap 6 BUN 38 H Creatinine 2.22 H Estim Creat Clear Calc 22.35 Est GFR (MDRD) Af Amer 36 L Est GFR (MDRD) Non-Af 30 L BUN/Creatinine Ratio 17.1 Glucose 112 H Lactic Acid 1.7 Calcium 8.7 Total Bilirubin 2.80 H AST 38 H ALT 35 Alkaline Phosphatase 112 Total Protein 7.1 Albumin 2.7 L Globulin 4.4 H Albumin/Globulin Ratio 0.6 L Lipase 93 Urine Color Urine Clarity Urine pH Ur Specific [place] Urine Protein Urine Glucose (UA) Urine Ketones Urine Occult Blood Urine Nitrite Urine Bilirubin Urine Urobilinogen Ur Leukocyte Esterase Urine RBC Urine WBC Ur Squamous Epith Cells Urine Bacteria Urine Mucus 10/07/20 06:35 WBC RBC Hgb Hct MCV MCH MCHC RDW Std Deviation RDW Coeff of Marlyn Plt Count MPV Immature Gran % (Auto) Neut % (Auto) Lymph % (Auto) Gordon % (Auto) Eos % (Auto) Baso % (Auto) Absolute Neuts (auto) Absolute Lymphs (auto) Nucleated RBC % Platelet Estimate Sodium Potassium Chloride Carbon Dioxide Anion Gap BUN Creatinine Estim Creat Clear Calc Est GFR (MDRD) Af Amer Est GFR (MDRD) Non-Af BUN/Creatinine Ratio Glucose Lactic Acid Calcium Total Bilirubin AST ALT Alkaline Phosphatase Total Protein Albumin Globulin Albumin/Globulin Ratio Lipase Urine Color Yellow Urine Clarity Clear Urine pH 6.0 Ur Specific [place] 1.010 Urine Protein Negative Urine Glucose (UA) Normal Urine Ketones Negative Urine Occult Blood Negative Urine Nitrite Negative Urine Bilirubin Negative Urine Urobilinogen Normal Ur Leukocyte Esterase Negative Urine RBC 0 SEEN Urine WBC 0 SEEN Ur Squamous Epith Cells 0 SEEN Urine Bacteria 0 SEEN Urine Mucus 0 SEEN Radiography Diagnostic Testing: Radiology Impression Abdomen/Pelvis CT 10/07/20 06:31 IMPRESSION: Liver cirrhosis with mild splenomegaly. Electronically Signed: Linda Vázquez MD at 7:41 EDT Tel , Service support , Discharge Plan Dx/Rx/DC Orders Clinical Impression: Acute kidney injury, Abdominal pain, acute, right lower quadrant, Constipation Disposition Disposition: Acute Care [facility]
--- NOTE | 2020-10-07 07:12 | HP.PCM.HOS_ITS ---
HPI - General General Date of Admission: 10/07/20 HPI Narrative The patient is an 85 y/o M w/ PMHx: HTN, HLD, Diabetes mellitus type II, Hx TIA, Former Tobacco use, Liver cirrhosis, Known bladder mass w/ retention issues s/p 10/03/20 who now re-presents to the [facility] ED on 10/07/20 with history of worsening abdominal discomfort, bloating without recent BM coupled with poor intake. Work- up in the ED included T 97.7, HR 76, BP 131/62, RR 14, 98% on RA, CBC w/ WBC 8.9, Hgb 13.3, Plts 99 without marked L shift, evidence lymphopenia, CMP w/ Na 134, BUN/Cr 38/2.22, glucose 112, LA 1.7, T bili 2.80, AST/ALT 38/35, lipase 93, UA not marked appearing for infection, CT A/P w/ chronic liver cirrhosis w/ mild splenomegaly and notable evidence constipation. Upon admission did discuss case with patient Urologist, Dr. Peraza who performed recent 10/03/20 surgery with discharge with del rosario in place on ciprofloxacin. [facility] Medical History (Updated 10/07/20 @ 10:[address] Aziza Escalera MD) Anxiety Cirrhosis Diabetes Former smoker Hard of hearing Hard of hearing Hypertension Leg cramps Restless legs TIA (transient ischemic attack) Wears glasses Home Medications Janumet 1 tab PO DAILY 09/26/20 [History Last Taken 10/02/20 09:00] amlodipine-benazepril 1 cap PO DAILY 09/26/20 [History Last Taken 10/03/20 08:00] atorvastatin 40 mg PO QHS 09/26/20 [History Last Taken 10/02/20 09:00] finasteride 5 mg PO DAILY 09/26/20 [History Last Taken 10/02/20 09:00] furosemide 20 mg PO QODAY 09/26/20 [History Last Taken 10/02/20 09:00] glimepiride 2 mg PO PRN PRN 09/26/20 [History Last Taken Unknown] nadolol 40 mg PO DAILY 09/26/20 [History Last Taken 10/03/20 08:00] triamterene-hydrochlorothiazid 1 cap PO DAILY 09/26/20 [History Last Taken 10/02/20 09:00] ciprofloxacin HCl [Cipro] 500 mg PO BID #10 tab 10/03/20 [Rx Last Taken Unknown] ascorbic acid (vitamin C) [Vitamin C] 100 mg PO DAILY 10/07/20 [History Last Taken Unknown] calcium carbonate-vitamin D3 [Calcium 500 With D] 1 tab PO BID 10/07/20 [History Last Taken Unknown] Allergy/AdvReac Type Severity Reaction Status Date / Time alfuzosin Allergy Other Verified 10/07/20 06:25 aspirin [ASA] Allergy Other Verified 10/07/20 06:25 ibuprofen Allergy Other Verified 10/07/20 06:25 BLOOD THINNERS Allergy Other Uncoded 10/07/20 06:25 Family History (Updated 10/07/20 @ 10:[address] Aziza Escalera MD) Mother Hypertension Father Hypertension Surgical History (Updated 10/07/20 @ 09:34 by Ángel Smallwood) History of coronary artery stent placement Hx of cardiac cath Hx of foot surgery Social History (Updated 10/07/20 @ 10:[address] Aziza Escalera MD) household members: spouse Smoking Status: Former smoker details: No EtOH usage. substance use type: does not use ROS ROS Narrative Admission Review of Systems: CONSTITUTIONAL: No weight loss, fever, chills, + weakness or fatigue. HEENT: Eyes: No visual loss, blurred vision, double vision or yellow sclerae. Ears, Nose, Throat: No hearing loss, sneezing, congestion, runny nose or sore throat. SKIN: No rash or itching, lesions, wounds. CARDIOVASCULAR: No chest pain, chest pressure or chest discomfort, palpitations, edema, orthopnea, syncopal events. RESPIRATORY: No shortness of breath, cough or sputum, wheezing, hemoptysis. GASTROINTESTINAL: + anorexia, nausea without vomiting, abdominal pain, constipation, No diarrhea, melena, BRBPR. GENITOURINARY: + dysuria, frequency, urgency or retention. NEUROLOGICAL: No headache, dizziness, syncope, paralysis, ataxia, numbness or tingling in the extremities, focal weakness, change in bowel or bladder control, seizure. MUSCULOSKELETAL: + muscle, back pain, joint pain or stiffness. HEMATOLOGIC: + anemia, bleeding or bruising. LYMPHATICS: No enlarged nodes. No history of splenectomy. PSYCHIATRIC: No history of depression or anxiety. ENDOCRINOLOGIC: No reports of sweating, cold or heat intolerance. No polyuria or polydipsia. ALLERGIES: No history of asthma, hives, eczema or rhinitis. Vital Signs Vital Signs Vital Signs: 10/07/20 06:17 10/07/20 06:22 Temperature 99.6 F H 99.6 F H Temperature Source Oral Oral Pulse Rate 65 65 Respiratory Rate 17 18 Blood Pressure 168/89 H 168/89 H Blood Pressure Mean 115 115 Pulse Ox 99 98 Oxygen Delivery Method Room Air Room Air Physical Exam Narrative Physical Examination: General: awake, alert, oriented x 3, extremely hard of hearing, remains cooperative when able to hear commands, seated upright in MS bed, uncomfortable appearing. Skin: normal color, turgor, no icterus, cyanosis. HEENT: AT/NC, EOMI, PERRLA, dry MM, no carotid bruits or JVD noted. Lungs: Mild diminished, > bases, mildly decreased effort, no rales, ronchi or wheezing. Heart: Regular rate and rhythm; no gallop, rub audible. Abdomen: soft, generalized discomfort with palpation, tympanitic, distended, hyperactive diffusely bowel sounds, + HM. Extremities: no cyanosis, clubbing, or edema. Neurological: patient awake, alert, oriented as noted; cognitive function intact; severely hard of hearing, pupils equally reactive to light and accomodation; cranial nerves II-XII grossly normal, moving all 4 extremities, no focal deficits, strength severely globally decreased given acute presentation, discomfort, worse with any movement. Psychiatric: affect appears uncomfortable, no acute evidence of depressive or anxiety feelings. Lab / Micro Data Result Diagrams: 10/07/20 06:25 10/07/20 06:25 Labs: Laboratory Results - last 24 hr 10/07/20 10/07/20 10/07/20 06:25 06:25 06:25 WBC 8.9 RBC 4.30 L Hgb 13.3 Hct 39.5 L MCV 91.9 MCH 30.9 MCHC 33.7 RDW Std Deviation 45.6 H RDW Coeff of Marlyn 13.5 Plt Count 99 L MPV 11.7 Immature Gran % (Auto) 0.700 Neut % (Auto) 79.1 H Lymph % (Auto) 7.7 L [place] % (Auto) 11.0 H Eos % (Auto) 1.2 Baso % (Auto) 0.3 Absolute Neuts (auto) 7.1 Absolute Lymphs (auto) 0.69 L Nucleated RBC % 0 Platelet Estimate MOD DEC Sodium 134 L Potassium 4.4 Chloride 101 Carbon Dioxide 27.0 Anion Gap 6 BUN 38 H Creatinine 2.22 H Estim Creat Clear Calc 22.35 Est GFR (MDRD) Af Amer 36 L Est GFR (MDRD) Non-Af 30 L BUN/Creatinine Ratio 17.1 Glucose 112 H Lactic Acid 1.7 Calcium 8.7 Total Bilirubin 2.80 H AST 38 H ALT 35 Alkaline Phosphatase 112 Total Protein 7.1 Albumin 2.7 L Globulin 4.4 H Albumin/Globulin Ratio 0.6 L Lipase 93 Urine Color Urine Clarity Urine pH Ur Specific [place] Urine Protein Urine Glucose (UA) Urine Ketones Urine Occult Blood Urine Nitrite Urine Bilirubin Urine Urobilinogen Ur Leukocyte Esterase Urine RBC Urine WBC Ur Squamous Epith Cells Urine Bacteria Urine Mucus 10/07/20 06:35 WBC RBC Hgb Hct MCV MCH MCHC RDW Std Deviation RDW Coeff of Marlyn Plt Count MPV Immature Gran % (Auto) Neut % (Auto) Lymph % (Auto) [place] % (Auto) Eos % (Auto) Baso % (Auto) Absolute Neuts (auto) Absolute Lymphs (auto) Nucleated RBC % Platelet Estimate Sodium Potassium Chloride Carbon Dioxide Anion Gap BUN Creatinine Estim Creat Clear Calc Est GFR (MDRD) Af Amer Est GFR (MDRD) Non-Af BUN/Creatinine Ratio Glucose Lactic Acid Calcium Total Bilirubin AST ALT Alkaline Phosphatase Total Protein Albumin Globulin Albumin/Globulin Ratio Lipase Urine Color Yellow Urine Clarity Clear Urine pH 6.0 Ur Specific [place] 1.010 Urine Protein Negative Urine Glucose (UA) Normal Urine Ketones Negative Urine Occult Blood Negative Urine Nitrite Negative Urine Bilirubin Negative Urine Urobilinogen Normal Ur Leukocyte Esterase Negative Urine RBC 0 SEEN Urine WBC 0 SEEN Ur Squamous Epith Cells 0 SEEN Urine Bacteria 0 SEEN Urine Mucus 0 SEEN Assessment & Plan Assessment/Plan (1) Acute kidney injury: (2) Constipation: QUALIFIERS: Constipation type: unspecified constipation type Qualified Code(s): K59.00 - Constipation, unspecified PLAN: The patient is an 85 y/o M w/ PMHx: HTN, HLD, Diabetes mellitus type II, Hx TIA, Former Tobacco use, Liver cirrhosis, Known bladder mass w/ retention issues s/p 10/03/20 who now re-presents to the [facility] ED on 10/07/20 with history of worsening abdominal discomfort, bloating without recent BM coupled with poor intake. 1. Acute kidney injury: Secondary to recent poor oral intake coupled with medications including diuretics and recent ciprofloxacin following surgical intervention 10/03/2020 coupled with constipation. Admission BUN/Cr 38/2.22, prior baseline creatinine noted to be 1.01. Will continue to hydrate, hold nephrotoxic medications and repeat chemistry in AM. Del Rosario remains in place. 2. Acute constipation: Likely contributing to #1, poor oral intake recently, wi ll initiate aggressive bowel regimen and given underlying cirrhotic history will use lactulose initially with other as needed agents and enema x1 upon admission, if aggressive bowel regimen is not as effective may consider using lactulose primarily, hold if loose stools. 3. Recently Diagnosed Bladder Mass w/ BPH: Patient with recent 10/03/2020 bladder tumor resection, updated urologist regarding patient presentation and agreed with current plan of care including hold on ciprofloxacin and temperature transition to Rocephin to complete 5-day antibiotic therapy, Del Rosario catheter remains in place, will continue patient home finasteride regimen. 4. Liver Cirrhosis, Unclear specific precipitant w/ chronic thrombocytopenia: Admission CT A/P w/ notable constipation otherwise findings consistent with liver cirrhosis with mild splenomegaly. Patient continued on nadolol, holding diuretics, adding lactulose as noted above, may need to consider routine regimen. 5. Hypertension: We will hold patient amlodipine/benazepril, Lasix, triamterene hydrochlorothiazide with as needed IV hydralazine in the interim given acute kidney injury and recent poor intake, continue nadolol. 6. Hyperlipidemia: We will continue patient home statin regimen. 7. Diabetes mellitus type II: Hold oral home regimen, given current presentation will trial clears and advance to ADA diet once improving, accu checks w/ ISS. 8. RLS: Not on regimen but if any concern may administer Mirapex regimen nightly. 9. Former tobacco use: We will encourage continued tobacco cessation. 10. DVT prophylaxis: SCDs, heparin cautiously given thrombocytopenia, hold if plts decrease further. 11. CODE status: Patient LAURI is who is present and living will is currently in place. Discussed CODE status at length including difference between FULL code, DNR-CCA and DNR-CC status. Following discussions about the differenc es in these status, requested Full Code. Advanced Care Planning Face to Face Time: 16 minutes Visit Charges Inpatient E&M: 18804 Init Hosp L3 Procedures Hospitalists Procedures: [id number] Advncd Care Plan 30 Min
[2020-10-07 08:41] LABS: Magnesium 1.8 mg/dL (1.6-2.6)
[2020-10-07] MEDS: 0.9% Normal Saline 1,000 ML 125 ML IV ×2 (10:02→17:46)
[2020-10-07] MEDS: 0.9% Saline Lock 10 ML Syringe IV (10:03)
[2020-10-07] MEDS: Ceftriaxone 1 GM/50 ML BAG IV (10:46)
[2020-10-07] MEDS: Acetaminophen 325 MG Tablet 650 MG PO ×3 (10:52→21:12)
--- NOTE | 2020-10-07 11:18 | NURSING ---
aprox 1000 cc soap suds enema given. elmira well. Held it about 3 minuets. now on commode.
[2020-10-07] MEDS: Lactulose 20 GM/30 ML UDC 10 GM PO ×3 (12:48→21:12)
[2020-10-07] MEDS: Calcium Carb/Vitamin D 1 TABLET Tablet PO ×2 (12:49→16:27)
[2020-10-07] MEDS: Heparin Injection (Vial) 5,000 UNIT/ML VIAL 5000 UNIT SC ×2 (12:49→21:22)
[2020-10-07] MEDS: Finasteride 5 MG Tablet PO (12:50)
[2020-10-07] MEDS: Nadolol 40 MG Tablet PO (12:50)
[2020-10-07 12:56] LABS: Bedside Glucose 128 mg/dL (70-110)
[2020-10-07 16:26] LABS: Bedside Glucose 163 mg/dL (70-110)
[2020-10-07] MEDS: Insulin Lispro 100 UNIT/ML INSULN.PEN SC ×2 (16:26→21:21)
[2020-10-07] MEDS: Atorvastatin Calcium 40 MG Tablet PO (21:12)
[2020-10-07 21:36] LABS: Bedside Glucose 161 mg/dL (70-110)
[2020-10-08] MEDS: Magnesium Hydroxide 30 ML UDC PO (00:41)
[2020-10-08] MEDS: 0.9% Normal Saline 1,000 ML 125 ML IV ×3 (01:10→18:40)
[2020-10-08 02:52] VITALS: BP 147/65; PULSE 67; RESP 18; TEMP 36.9; O2SAT 96
[2020-10-08] MEDS: Acetaminophen 325 MG Tablet 650 MG PO (02:52)
[2020-10-08] MEDS: Ondansetron 4 MG/2 ML Vial IV ×2 (03:01→12:37)
[2020-10-08] MEDS: Insulin Lispro 100 UNIT/ML INSULN.PEN SC ×3 (06:19→17:00)
[2020-10-08 06:21] LABS: Bedside Glucose 183 mg/dL (70-110)
[2020-10-08 07:20] VITALS: O2SAT 95
[2020-10-08 07:23] LABS: Absolute Lymphocyte Count 0.51 X10^3/uL (0.83-4.51); Absolute Neutrophil Count 6.4 X10^3/uL (2.0-7.7); Basophil# 0.03 X10^3/uL; Basophil% 0.4 % (0-1); Eosinophil# 0.08 X10^3/uL; Hematocrit 37.2 % (40-54); Hemoglobin 12.3 g/dL (13.0-16.5); Lymphocyte # 0.51 X10^3/ul (0.83-4.51); Lymphocyte % 6.5 % (19-41); Mean Corp Hgb Conc 33.1 g/dL (32-36); Mean Corpuscular Hgb 29.9 pg (27.0-32.0); Mean Corpuscular Volume 90.5 fL (80-94); Mean Platelet Vol. 12.1 fl (6.2-12.0); Monocyte# 0.81 X10^3/uL; Monocyte% 10.3 % (0-10); NRBC Flagged by Analyzer 0 % (0-5); Neutrophil # 6.42 X10^3/uL (2.7-7.7); Neutrophil % 81.3 % (47-70); POSITIVE COUNT YES; POSITIVE DIFFERENTIAL YES; Platelet Count 86 K/mm3 (150-450); RBC Distribution Width CV 13.6 % (11.6-14.6); RBC Distribution Width SD 45.1 fl (35.1-43.9); Red Blood Count 4.11 M/mm3 (4.6-6.2); White Blood Count 7.9 K/mm3 (4.4-11.0)
[2020-10-08 07:29] LABS: Differential Indicated SCAN CRITERIA MET
--- NOTE | 2020-10-08 07:36 | CON.PCM_ITS ---
Consult Date of Consult: 10/08/20 85-year-old male who I took care of last week at [facility] for bladder cancer with resection. He then presented to the hospital with severe constipation. Tobar catheter was also placed for retention of urine. He is now making fairly good urine output will DC Tobar for voiding trial today. He states his bowels are moving. Hopefully ability to be discharged home once he is stable. I wrote the order for the nurses to take the catheter out for voiding trial.
[2020-10-08 08:01] LABS: ALB/GLOB Ratio 0.6 RATIO (0.9-2.4); AST(SGOT) 32 U/L (15-37); Alanine Aminotransfer ALT/SGPT 29 U/L (16-61); Albumin, Serum 2.2 g/dL (3.2-5.0); Alkaline Phosphatase 102 U/L (45-117); Anion Gap 7 (5-15); BUN 38 mg/dL (7-18); BUN/Creat Ratio 19.9 RATIO (10-20); Calcium,Total 7.9 mg/dL (8.5-10.1); Chloride 103 mmol/L (98-107); Creatinine, Serum 1.91 mg/dL (0.70-1.30); EST Glomerular Filtration Rate 36 mL/min (>60); Est Glom Filt Rate - Afr Amer 43 mL/min (>60); Estimated Creatinine Clearance 25.98 ml/min; Globulin 3.7 g/dL (2.2-4.2); Glucose 161 mg/dL (74-106); Potassium 3.9 mmol/L (3.5-5.1); Protein, Total 5.9 g/dL (6.4-8.2); Sodium Level 133 mmol/L (136-145)
[2020-10-08 08:16] LABS: Platelet Estimate MOD DEC (ADEQ)
--- NOTE | 2020-10-08 09:12 | PCM.PN.HOSP ---
Documented by User: Collette Ko NP, INFORMATION ASSURANCE ENGINEER-C 10/08/20 09:21 Subjective Subjective: Patient seen and examined. On bedside commode. Hard of hearing. Communicated with patient via writing. Patient states he is passing gas, no bowel movement yet. Reports abdomen is tender and distended. Denies nausea, vomiting. Objective Data Objective Data Vital Signs: Vital Signs Temp Pulse Resp BP Pulse Ox 98.5 F 67 18 147/65 H 95 10/08/20 02:52 10/08/20 02:52 10/08/20 02:52 10/08/20 02:52 10/08/20 07:20 Oxygen Delivery Method Room Air Weight: 190 lb 7.67 oz Body Mass Index (BMI) 29.3 Intake & Output: Intake and Output for Last 24 Hours 10/06/20 10/07/20 10/08/20 23:59 23:59 23:59 Intake Total 1016.67 / 1016.67 925 / 925 Output Total 175 / 175 300 / 300 Balance 841.67 / 841.67 625 / 625 Lab / Micro Data Result Diagrams: 10/08/20 06:50 10/08/20 06:50 Labs: Laboratory Results - last 24 hr 10/07/20 10/07/20 10/07/20 10:54 16:21 21:21 WBC RBC Hgb Hct MCV MCH MCHC RDW Std Deviation RDW Coeff of Marlyn Plt Count MPV Immature Gran % (Auto) Neut % (Auto) Lymph % (Auto) Hall % (Auto) Eos % (Auto) Baso % (Auto) Absolute Neuts (auto) Absolute Lymphs (auto) Nucleated RBC % Differential Comment Platelet Estimate Sodium Potassium Chloride Carbon Dioxide Anion Gap BUN Creatinine Estim Creat Clear Calc Est GFR (MDRD) Af Amer Est GFR (MDRD) Non-Af BUN/Creatinine Ratio Glucose Calcium Total Bilirubin AST ALT Alkaline Phosphatase Total Protein Albumin Globulin Albumin/Globulin Ratio POC Glucose 128 H 163 H 161 H 10/08/20 10/08/20 10/08/20 06:16 06:50 06:50 WBC 7.9 RBC 4.11 L Hgb 12.3 L Hct 37.2 L MCV 90.5 MCH 29.9 MCHC 33.1 RDW Std Deviation 45.1 H RDW Coeff of Marlyn 13.6 Plt Count 86 L MPV 12.1 H Immature Gran % (Auto) 0.500 Neut % (Auto) 81.3 H Lymph % (Auto) 6.5 L Hall % (Auto) 10.3 H Eos % (Auto) 1.0 Baso % (Auto) 0.4 Absolute Neuts (auto) 6.4 Absolute Lymphs (auto) 0.51 L Nucleated RBC % 0 Differential Comment COMMENT Platelet Estimate MOD DEC Sodium 133 L Potassium 3.9 Chloride 103 Carbon Dioxide 23.0 Anion Gap 7 BUN 38 H Creatinine 1.91 H Estim Creat Clear Calc 25.98 Est GFR (MDRD) Af Amer 43 L Est GFR (MDRD) Non-Af 36 L BUN/Creatinine Ratio 19.9 Glucose 161 H Calcium 7.9 L Total Bilirubin 2.10 H AST 32 ALT 29 Alkaline Phosphatase 102 Total Protein 5.9 L Albumin 2.2 L Globulin 3.7 Albumin/Globulin Ratio 0.6 L POC Glucose 183 H Physical Exam Const alert, oriented x3 and no apparent distress Orientation / Consciousness: awake, oriented to person, oriented to place and oriented to time HEENT normocephalic and moist oral mucous membranes Eyes PERRL, EOMs intact bilaterally and conjunctivae normal Neck no lymphadenopathy Resp normal respiratory effort and clear to auscultation bilaterally Cardio regular rate, regular rhythm and no murmurs Peripheral Pulses: pulses 2+ throughout GI normal to inspection, nondistended, normoactive bowel sounds Inspection: other Other Details: distended Palpation: tender Extremity normal to inspection Skin no rashes or lesions noted Lesions: no lesions Rashes: no rashes Trauma: no lacerations or abrasions Neuro oriented x3 Sensorium / Orientation: awake and alert Psych affect normal Assessment & Plan Assessment/Plan (1) Acute kidney injury: (2) Constipation: QUALIFIERS: Constipation type: unspecified constipation type Qualified Code(s): K59.00 - Constipation, unspecified PLAN: 1. Acute kidney injury-improving, continue IV fluids. Trend BMP. Hold nephrotoxic regimen. 2. Acute constipation-continue scheduled lactulose and as needed bowel regimen. Add scheduled MiraLAX. 3. Recent diagnosis bladder mass with BPH-status post bladder tumor resection 10/03/2020. Urology following. On Rocephin. Continue finasteride. 4. Liver cirrhosis with associated chronic thrombocytopenia-on nadolol, lactulose. Diuretics held due to ELVA. 5. Hypertension-stable, continue current regimen. 6. Hyperlipidemia-continue statin. 7. Type 2 diabetes [id number]-[id number] with sliding scale insulin. 8. Restless leg syndrome-not on regimen. 9. Former tobacco use-encouraged cessation. DVT prophylaxis-Lovenox subcu This patient was seen by Collette Ko NP-C under the supervision of Dr. Galindo. Documented by User: Dr. Trevor Galindo, 10/08/20 19:25 Objective Data Lab / Micro Data Result Diagrams: 10/08/20 06:50 10/08/20 06:50 Assessment & Plan Assessment/Plan (1) Bladder tumor: PLAN: Patient was seen and examined today independently of Collette Ko, he had some abdominal bloating earlier today, I talked with his who is in the room today, I gave him a Dulcolax suppository and he had several bowel movements and he is less distended at this time of my examination later on the afternoon. On examination he appeared in good health and spirits. Vital signs as documented. Skin warm and dry and without overt rashes. Neck without JVD, neck was supple, trachea midline, thyroid was normal. Lungs clear bilaterally, normal air movement was noted. Heart exam notable for regular rhythm, normal sounds and absence of murmurs, rubs or gallops. Abdomen unremarkable and without evidence of organomegaly, masses, or abdominal aortic enlargement. Bowel sounds are present, abdomen is mildly distended. Extremities nonedematous, no cyanosis was noted, no clubbing was noted. Neuro: Cranial nerves II through XII are grossly intact, no focal motor deficits were noted, sensation to light touch and pinprick intact, motor exam 5/5 throughout. Psych: Patient is alert and oriented x3, he does not appear anxious or depressed, he does not appear agitated. I have reviewed Collette Ko's progress note including her medical assessment and plan of care and endorse it Multi Select Codes Visit Charges Visit Charges: 54578 Subs Hosp L2
[2020-10-08 09:27] VITALS: BP 149/77; PULSE 60; RESP 18; TEMP 37.1; O2SAT 96
[2020-10-08] MEDS: Ceftriaxone 1 GM/50 ML BAG IV (09:29)
[2020-10-08] MEDS: Heparin Injection (Vial) 5,000 UNIT/ML VIAL 5000 UNIT SC ×2 (09:30→22:02)
[2020-10-08] MEDS: Nadolol 40 MG Tablet PO (09:30)
[2020-10-08] MEDS: Calcium Carb/Vitamin D 1 TABLET Tablet PO ×2 (09:30→17:00)
[2020-10-08] MEDS: Finasteride 5 MG Tablet PO (09:30)
[2020-10-08] MEDS: Polyethylene Glycol 3350 17 GM PACKET PO (09:35)
[2020-10-08] MEDS: Lactulose 20 GM/30 ML UDC 10 GM PO ×2 (11:45→22:01)
[2020-10-08 12:01] LABS: Bedside Glucose 168 mg/dL (70-110)
[2020-10-08] MEDS: Mag Hydrox/Al Hydrox/Simeth 30 ML UDC PO (12:37)
[2020-10-08] MEDS: 0.9% Saline Lock 10 ML Syringe IV (12:38)
--- NOTE | 2020-10-08 14:32 | CASEMGMT ---
RN АНДРЕЙ Face to Face with patient for initial transition planning/care coordination assessment. RN CM introduced self and role at [facility]. Patient lying in bed, alert and oriented, at bedside. Patient is deaf and willing to participate in assessment and is able to answer all questions appropriately. Care providers, pharmacy, and demographics verified. Patient and wish to discharge home, denies need for home health at this time. states she has no further needs or concerns at this time. CM to follow for discharge planning needs that may arise PCP: Bong Specialists: Sam, truck leasing manager; [facility]; Stu, urologist Preferred Pharmacy: [facility] Insurance: [employer] Prescription Benefit: yes Living Will/HPOA: yes, Dorys Rivas LNOK: , son Living Arrangements: Patient lives with in a 1.5 story home with bed and bath on first floor, 2 steps to enter the home. Patient is independent at home. Transportation: self/son or DIL DME/HHC: Patient has shower chair, raised toilet, walker, and grab bars at home. denies previous HHC or SNF. Disposition Plan: Patient to discharge home with family support and follow-up plans in place. Lizeth WIGGINS, RN, CM
[2020-10-08] MEDS: Bisacodyl 10 MG Suppository RC (14:44)
--- NOTE | 2020-10-08 14:44 | CASEMGMT ---
Pt qualifies for palliative c/s per [facility] palliative screening tool but Dr. Galindo, referral not to be sent at this time. Kareen YEH CM
[2020-10-08 15:48] VITALS: BP 139/66; PULSE 75; RESP 18; TEMP 37.2; O2SAT 97
[2020-10-08 17:11] LABS: Bedside Glucose 157 mg/dL (70-110)
[2020-10-08 21:45] VITALS: BP 133/62; PULSE 70; RESP 18; TEMP 37.3; O2SAT 97
[2020-10-08] MEDS: Atorvastatin Calcium 40 MG Tablet PO (22:03)
[2020-10-08 22:30] LABS: Bedside Glucose 148 mg/dL (70-110)
[2020-10-09] MEDS: 0.9% Normal Saline 1,000 ML 125 ML IV (04:12)
[2020-10-09 04:24] VITALS: BP 143/74; PULSE 65; RESP 18; TEMP 37.1; O2SAT 97
[2020-10-09] MEDS: Lactulose 20 GM/30 ML UDC 10 GM PO (06:31)
[2020-10-09 06:41] LABS: Bedside Glucose 137 mg/dL (70-110)
[2020-10-09 07:35] LABS: Anion Gap 6 (5-15); BUN 32 mg/dL (7-18); BUN/Creat Ratio 18.6 RATIO (10-20); Calcium,Total 7.6 mg/dL (8.5-10.1); Chloride 107 mmol/L (98-107); Creatinine, Serum 1.72 mg/dL (0.70-1.30); EST Glomerular Filtration Rate 40 mL/min (>60); Est Glom Filt Rate - Afr Amer 49 mL/min (>60); Estimated Creatinine Clearance 28.85 ml/min; Glucose 138 mg/dL (74-106); Potassium 4.1 mmol/L (3.5-5.1); Sodium Level 136 mmol/L (136-145)
[2020-10-09 08:53] VITALS: O2SAT 97
--- NOTE | 2020-10-09 09:07 | PCM.DC ---
Discharge Instructions Diet Discharge Diet: Light diet - advance as tolerated Activity Discharge Activity: Return to Normal Activity Dressing / Incision Call your doctor if you observe: Inability to urinate and Inability to have a bowel movement Follow Up Care Test Results: Test results from this visit will be discussed in further detail at your follow-up appointment, if applicable. Discharge Plan Admission Admit Date/Time: 10/07/20 07:55 Primary Reason for Your Visit: Constipation, acute kidney injury Attending Provider: Trevor Galindo Primary Care Provider: Nicholas Woody Discharge Orders/Prescriptions Prescriptions: New polyethylene glycol 3350 17 gram Powder In Packet 17 g PO DAILY Qty: 30 RF: 0 Continued atorvastatin 40 mg tablet 40 mg PO QHS RF: 0 amlodipine-benazepril 2.5-10 mg capsule 1 cap PO DAILY RF: 0 glimepiride 2 mg tablet 2 mg PO PRN PRN (Reason: DIABETES) RF: 0 nadolol 40 mg tablet 40 mg PO DAILY RF: 0 finasteride 5 mg tablet 5 mg PO DAILY RF: 0 Janumet 50-500 mg tablet 1 tab PO DAILY RF: 0 Vitamin C 100 mg Tablet 100 mg PO DAILY RF: 0 calcium carbonate-vitamin D3 [Calcium 500 With D] 500 mg(1,250mg) -400 unit Tablet 1 tab PO BID RF: 0 Held triamterene-hydrochlorothiazid 37.5-25 mg capsule 1 cap PO DAILY RF: 0 Hold Instructions: Resume on 10/23/20. Hold until repeat BMP/Follow up with PCP furosemide 20 mg tablet 20 mg PO QODAY RF: 0 Hold Instructions: Resume on 10/23/20. Hold until repeat BMP as outpatient/follow up with PCP Discontinued ciprofloxacin HCl [Cipro] 500 mg tablet 500 mg PO BID Qty: 10 RF: 0 Referrals / Follow Up: Raphael Peraza MD [STAFF PHYSICIAN] - In 1 Week Nicholas Woody MD [Primary Care Provider] - In 1 Week Disposition Disposition (needs filled in before D/C Order can be placed): Home, self care
--- NOTE | 2020-10-09 09:19 | DS.PCM_ITS ---
Documented by User: Collette Ko NP, COORDINATE MEASURING EQUIPMENT OPERATOR-C 10/09/20 09:25 Providers Date of Admission: 10/07/20 Primary Care Physician: Dr. Nicholas Woody MD Reason For Visit: ELVA, CONSTIPATION Diagnosis Discharge Diagnosis (1) Bladder tumor: Status: Acute Code(s): D49.4 - Neoplasm of unspecified behavior of bladder (2) Acute kidney injury: Status: Acute Code(s): N17.9 - Acute kidney failure, unspecified (3) Constipation: Status: Acute Code(s): K59.00 - Constipation, unspecified Qualifiers: Constipation type: unspecified constipation type Qualified Code(s): K59 .00 - Constipation, unspecified Medications at Discharge Home Medications Janumet 1 tab PO DAILY 09/26/20 amlodipine-benazepril 1 cap PO DAILY 09/26/20 atorvastatin 40 mg PO QHS 09/26/20 finasteride 5 mg PO DAILY 09/26/20 furosemide 20 mg PO QODAY 09/26/20 glimepiride 2 mg PO PRN PRN 09/26/20 nadolol 40 mg PO DAILY 09/26/20 triamterene-hydrochlorothiazid 1 cap PO DAILY 09/26/20 Vitamin C 100 mg PO DAILY 10/07/20 calcium carbonate-vitamin D3 [Calcium 500 With D] 1 tab PO BID 10/07/20 polyethylene glycol 3350 17 g PO DAILY #30 ea 10/09/20 Hospital Course Operations None Procedures None Summary of Care Provided Minutes Spent on Discharge: 35 Hospital Course: Patient is an 85-year-old male admitted 10/07/2020 due to abdominal discomfort, constipation. 1. Acute kidney injury-improved with IV fluids. Hold Lasix and triamterene/hydrochlorothiazide at discharge until follow-up with PCP/repeat BMP. Follow-up with PCP in 1 week. 2. Acute constipation-resolved following initiation of bowel regimen. Continue daily MiraLAX at discharge. 3. Recent diagnosis bladder mass with BPH-status post bladder tumor resection 10/03/2020. Urology consulted during admission. Continue finasteride. Tobar catheter removed, voiding trial completed prior to discharge. Completed course of antibiotics. Follow-up with urology in 1 week. 4. Liver cirrhosis with associated chronic thrombocytopenia-on nadolol. Lasix on hold pending further outpatient follow-up. 5. Hypertension-stable, continue nadolol, amlodipine/benazepril. Lasix and triamterene/hydrochlorothiazide on hold. 6. Hyperlipidemia-continue statin. 7. Type 2 diabetes mellitus-continue home oral regimen at discharge. 8. Restless leg syndrome-not on regimen. 9. Former tobacco use-encouraged cessation. Physical Exam Const alert, oriented x3 and no apparent distress Orientation / Consciousness: awake, oriented to person, oriented to place and oriented to time HEENT normocephalic and moist oral mucous membranes Eyes PERRL, EOMs intact bilaterally and conjunctivae normal Neck no lymphadenopathy Resp normal respiratory effort and clear to auscultation bilaterally Cardio regular rate, regular rhythm and no murmurs Peripheral Pulses: pulses 2+ throughout GI normal to inspection, nondistended, normoactive bowel sounds Inspection: other Other Details: distended Palpation: tender Extremity normal to inspection Skin no rashes or lesions noted Lesions: no lesions Rashes: no rashes Trauma: no lacerations or abrasions Neuro oriented x3 Sensorium / Orientation: awake and alert Psych affect normal Patient seen and examined prior to discharge. Physical assessment as noted above. Patient is stable for discharge with follow up recommendations as noted above. This patient was seen by EDISON Laguerre under the supervision of Dr. Galindo. ABG / Lab / Microbiology Data Result Diagrams: 10/08/20 06:50 10/09/20 06:30 Laboratory: Laboratory Results - last 24 hr 10/08/20 10/08/20 10/08/20 11:43 16:57 21:58 Sodium Potassium Chloride Carbon Dioxide Anion Gap BUN Creatinine Estim Creat Clear Calc Est GFR (MDRD) Af Amer Est GFR (MDRD) Non-Af BUN/Creatinine Ratio Glucose Calcium POC Glucose 168 H 157 H 148 H 10/09/20 10/09/20 06:30 06:36 Sodium 136 Potassium 4.1 Chloride 107 Carbon Dioxide 23.0 Anion Gap 6 BUN 32 H Creatinine 1.72 H Estim Creat Clear Calc 28.85 Est GFR (MDRD) Af Amer 49 L Est GFR (MDRD) Non-Af 40 L BUN/Creatinine Ratio 18.6 Glucose 138 H Calcium 7.6 L POC Glucose 137 H D/C Instructions Discharge Diet: Light diet - advance as tolerated Discharge Activity: Return to Normal Activity Call your doctor if you observe: Inability to urinate and Inability to have a bowel movement Meaningful Use Info Meaningful Use Diagnoses (Choose all that apply): None applicable Discharge Plan Admission Admit Date/Time: 10/07/20 07:55 Primary Reason for Your Visit: Constipation, acute kidney injury Attending Provider: Trevor Galindo Primary Care Provider: Nicholas Woody Instructions Patient Instructions: Treating Constipation Discharge Orders/Prescriptions Prescriptions: New polyethylene glycol 3350 17 gram Powder In Packet 17 g PO DAILY Qty: 30 RF: 0 Continued atorvastatin 40 mg tablet 40 mg PO QHS RF: 0 amlodipine-benazepril 2.5-10 mg capsule 1 cap PO DAILY RF: 0 glimepiride 2 mg tablet 2 mg PO PRN PRN (Reason: DIABETES) RF: 0 nadolol 40 mg tablet 40 mg PO DAILY RF: 0 finasteride 5 mg tablet 5 mg PO DAILY RF: 0 Janumet 50-500 mg tablet 1 tab PO DAILY RF: 0 Vitamin C 100 mg Tablet 100 mg PO DAILY RF: 0 calcium carbonate-vitamin D3 [Calcium 500 With D] 500 mg(1,250mg) -400 unit Tablet 1 tab PO BID RF: 0 Held triamterene-hydrochlorothiazid 37.5-25 mg capsule 1 cap PO DAILY RF: 0 Hold Instructions: Resume on 10/23/20. Hold until repeat BMP/Follow up with PCP furosemide 20 mg tablet 20 mg PO QODAY RF: 0 Hold Instructions: Resume on 10/23/20. Hold until repeat BMP as outpatient/follow up with PCP Discontinued ciprofloxacin HCl [Cipro] 500 mg tablet 500 mg PO BID Qty: 10 RF: 0 Referrals / Follow Up: Raphael Peraza MD [STAFF PHYSICIAN] - 10/22/20 10:30 am Nicholas Woody MD [Primary Care Provider] - 10/16/20 9:00 am Disposition Disposition (needs filled in before D/C Order can be placed): Home, self care Documented by User: Dr. Trevor Galindo DO 10/09/20 18:36 Providers Date of Admission: 10/07/20 Reason For Visit: ELVA, CONSTIPATION Medications at Discharge Home Medications Janumet 1 tab PO DAILY 09/26/20 amlodipine-benazepril 1 cap PO DAILY 09/26/20 atorvastatin 40 mg PO QHS 09/26/20 finasteride 5 mg PO DAILY 09/26/20 furosemide 20 mg PO QODAY 09/26/20 glimepiride 2 mg PO PRN PRN 09/26/20 nadolol 40 mg PO DAILY 09/26/20 triamterene-hydrochlorothiazid 1 cap PO DAILY 09/26/20 Vitamin C 100 mg PO DAILY 10/07/20 calcium carbonate-vitamin D3 [Calcium 500 With D] 1 tab PO BID 10/07/20 polyethylene glycol 3350 17 g PO DAILY #30 ea 10/09/20 ABG / Lab / Microbiology Data Result Diagrams: 10/08/20 06:50 10/09/20 06:30 Discharge Plan Admission Admit Date/Time: 10/07/20 07:55 Primary Reason for Your Visit: Constipation, acute kidney injury Attending Provider: Trevor Galindo Primary Care Provider: Nicholas Woody Instructions Patient Instructions: Treating Constipation Discharge Orders/Prescriptions Prescriptions: New polyethylene glycol 3350 17 gram Powder In Packet 17 g PO DAILY Qty: 30 RF: 0 Continued atorvastatin 40 mg tablet 40 mg PO QHS RF: 0 amlodipine-benazepril 2.5-10 mg capsule 1 cap PO DAILY RF: 0 glimepiride 2 mg tablet 2 mg PO PRN PRN (Reason: DIABETES) RF: 0 nadolol 40 mg tablet 40 mg PO DAILY RF: 0 finasteride 5 mg tablet 5 mg PO DAILY RF: 0 Janumet 50-500 mg tablet 1 tab PO DAILY RF: 0 Vitamin C 100 mg Tablet 100 mg PO DAILY RF: 0 calcium carbonate-vitamin D3 [Calcium 500 With D] 500 mg(1,250mg) -400 unit Tablet 1 tab PO BID RF: 0 Held triamterene-hydrochlorothiazid 37.5-25 mg capsule 1 cap PO DAILY RF: 0 Hold Instructions: Resume on 10/23/20. Hold until repeat BMP/Follow up with PCP furosemide 20 mg tablet 20 mg PO QODAY RF: 0 Hold Instructions: Resume on 10/23/20. Hold until repeat BMP as outpatient/follow up with PCP Discontinued ciprofloxacin HCl [Cipro] 500 mg tablet 500 mg PO BID Qty: 10 RF: 0 Referrals / Follow Up: Raphael Peraza MD [STAFF PHYSICIAN] - 10/22/20 10:30 am Nicholas Woody MD [Primary Care Provider] - 10/16/20 9:00 am Disposition Disposition (needs filled in before D/C Order can be placed): Home, self care Addendum Addendum: Patient was seen and examined today independently of Collette Ko, I talked extensively with the patient's who is in the room at the time of my examination, patient is totally deaf and is unable to communicate verbally. On examination he appeared in good health and spirits. Patient is deaf. Vital signs as documented. Skin warm and dry and without overt rashes. Neck without JVD, neck was supple, trachea midline, thyroid was normal. Lungs clear bilaterally, normal air movement was noted. Heart exam notable for regular rh ythm, normal sounds and absence of murmurs, rubs or gallops. Abdomen unremarkable and without evidence of organomegaly, masses, or abdominal aortic enlargement. Bowel sounds are present, abdomen is not distended. Extremities nonedematous, no cyanosis was noted, no clubbing was noted. Neuro: Cranial nerves II through XII are grossly intact, no focal motor deficits were noted, sensation to light touch and pinprick intact, motor exam 5/5 throughout. Psych: Patient is alert and oriented x3, he does not appear anxious or depressed, he does not appear agitated. Patient appears stable for discharge at this time, I instructed the to call urology and make a follow-up appointment for the patient to be seen in the office, I also talked briefly with his urologist Dr. Peraza. I have reviewed Collette Ko's discharge summary including her medical assessment and plan of care and endorse it. Visit Charges Inpatient E&M: 30714 Disch Hosp
[2020-10-09] MEDS: Heparin Injection (Vial) 5,000 UNIT/ML VIAL 5000 UNIT SC (09:47)
[2020-10-09] MEDS: Nadolol 40 MG Tablet PO (09:47)
[2020-10-09] MEDS: Polyethylene Glycol 3350 17 GM PACKET PO (09:48)
[2020-10-09] MEDS: Ceftriaxone 1 GM/50 ML BAG IV (09:48)
[2020-10-09] MEDS: Calcium Carb/Vitamin D 1 TABLET Tablet PO (09:48)
[2020-10-09] MEDS: Finasteride 5 MG Tablet PO (09:49)
[2020-10-09 09:55] VITALS: BP 150/72; PULSE 74; RESP 18; TEMP 36.9; O2SAT 97
--- NOTE | 2020-10-09 10:26 | PHA.DC.MR ---
Pharmacy Service has performed discharge medication reconciliation for this patient. The patient's discharge medication list was reviewed for discrepancies and discrepancies were resolved. Home Medications Janumet 1 tab PO DAILY 09/26/20 amlodipine-benazepril 1 cap PO DAILY 09/26/20 atorvastatin 40 mg PO QHS 09/26/20 finasteride 5 mg PO DAILY 09/26/20 furosemide 20 mg PO QODAY 09/26/20 glimepiride 2 mg PO PRN PRN 09/26/20 nadolol 40 mg PO DAILY 09/26/20 triamterene-hydrochlorothiazid 1 cap PO DAILY 09/26/20 Vitamin C 100 mg PO DAILY 10/07/20 calcium carbonate-vitamin D3 [Calcium 500 With D] 1 tab PO BID 10/07/20 polyethylene glycol 3350 17 g PO DAILY #30 ea 10/09/20
[2020-10-09] MEDS: Insulin Lispro 100 UNIT/ML INSULN.PEN SC (11:39)
[2020-10-09 11:50] LABS: Bedside Glucose 174 mg/dL (70-110)
[2020-10-09 12:53] VITALS: BP 150/68; PULSE 64; RESP 18; TEMP 36.9; O2SAT 100
--- NOTE | 2020-10-10 14:01 | NURSING ---
ALIX DC F/u Call: DC Date: 10/09/20 Discharge Diagnosis (1) Bladder tumor: Status: Acute Code(s): D49.4 - Neoplasm of unspecified behavior of bladder (2) Acute kidney injury: Status: Acute Code(s): N17.9 - Acute kidney failure, unspecified (3) Constipation: Status: Acute Code(s): K59.00 - Constipation, unspecified Qualifiers: Constipation type: unspecified constipation type Qualified Code(s): K59.00 - Constipation, unspecified DC Disposition: Home Lace/Strata: 04/03 Called patient listed number, answered by Dorys. States patient is currently sleeping and cannot hear. States patient is doing so so. Pharmacy did not have his DC medication- for constipation and advised her to get Miralax which is the same. States she has given patient the Miralax and patient had a BM but is diarrhea, states has a skin tear/sore from the hospital about a kim size from having diarrhea in the hospital. Called Dr Peraza last night d/t patient having pain and advised to give Tylenol. has been giving him one ES Tylenol Q4hr and instructions state can given 2 capsules Q6hr.Has been eating very little, states has ate bran cereal a couple of times. Has a F/u appointment with Dr Woody next week. Denies any further issues, questions or concerns with DC planning, ACI or medications. Thanked for them choosing [facility] for patient care and conversation ended. ALIX Nina
== END 2020-10-09 13:32 | disposition home or self-care (01) | DRG 684 ==
LOC: ED 08:05 → MS3 08:26
PROVIDERS: Nurse Practitioner Family; Admitting Provider Family Medicine; Emergency Provider Emergency Medicine; PCP Family Medicine; Visit Provider Internal Medicine
DX: N17.9 Acute kidney failure, unspecified (principal); D69.6 Thrombocytopenia, unspecified; E11.9 Type 2 diabetes mellitus without complications; N40.1 Benign prostatic hyperplasia with lower urinary tract symptoms; R33.8 Other retention of urine; E78.5 Hyperlipidemia, unspecified; G25.81 Restless legs syndrome; H91.90 Unspecified hearing loss, unspecified ear; I10 Essential (primary) hypertension; K59.00 Constipation, unspecified; K74.60 Unspecified cirrhosis of liver; Z87.891 Personal history of nicotine dependence; Z95.5 Presence of coronary angioplasty implant and graft; Z96.0 Presence of urogenital implants; Z85.51 Personal history of malignant neoplasm of bladder; Z86.73 Personal history of transient ischemic attack (TIA), and cerebral infarction without residual deficits; Z79.84 Long term (current) use of oral hypoglycemic drugs; Z79.899 Other long term (current) drug therapy; Z98.890 Other specified postprocedural states
CPT/HCPCS: 36415; 51702; 74176; 80048; 80053; 81001; 82962; 83605; 83690; 83735; 85025; 99251; 99283; 99285; J7030; A4216; G0463; J2405

== ENCOUNTER → 2021-03-19 | Outpatient (CLI) | payer MEDICARE, SELFPAY ==
--- NOTE | 2021-03-19 14:25 | BLA_PTH ---
PATIENT: RENUKA CONLEY LOC: [facility] U#:[id number] AGE/SX: 85/M ROOM: RE03/19/[address]: Dr. Raphael Peraza MD : 1935 BED: DIS: 03/19/2021 SPEC #: [id number] RECD: 03/19/21 16:34 STATUS: KRISTIAN REDelicia #: [id number] ROXANN: 03/19/21 14:[address]: Raphael Peraza DEPT: SURGICAL PATHOLOGY RECD BY: Alysia Ace ENTERED: 03/20/21 11:08 SP TYPE: BLADDER BX OTHR DR: Dr. 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 See comment. AM:emelia 03/21/2021 COMMENT There is no evidence of lamina propria invasion. Detrusor muscle is not represented in the biopsy. Clinical correlation is suggested. Reference is made to the patient's previous urinary bladder, TUR ([id number]) in which low-grade urothelial carcinoma was identified. MICROSCOPIC DESCRIPTION Slides are reviewed. GROSS DESCRIPTION Received is one container labeled with the patient's name and not further designated. The specimen consists of one irregular fragment of light dempsey soft tissue that measures 0.2 x <0.1 x <0.1 cm. The specimen is totally submitted in one cassette. / AM:emelia 03/20/21 TC:0 CPT: 14289
== END | disposition home or self-care (01) ==
LOC: LABSPEC 16:40
PROVIDERS: PCP Family Medicine; Referring Provider Urology; Visit Provider Urology
DX: C67.9 Malignant neoplasm of bladder, unspecified (principal)
CPT/HCPCS: 88305

== ENCOUNTER 2021-04-10 07:51 | Day surgery (SDC) | payer MEDICARE, SELFPAY ==
--- NOTE | 2021-04-08 13:07 | EKG12_ITS ---
Test Reason : PRE OP Blood Pressure : / mmHG Vent. Rate : 058 BPM Atrial Rate : 058 BPM P-R Int : 238 ms QRS Dur : 090 ms QT Int : 422 ms P-R-T Axes : 046 066 042 degrees QTc Int : 414 ms Sinus bradycardia with 1st degree A-V block with Premature atrial complexes Otherwise normal ECG Confirmed by MAMI LAW, DONNA ([id number]), clinical editor CYDNEY HUGHES ([id number]) on 04/09/2021 8:18:15 AM Referred By: Raphael Peraza Confirmed By:DONNA BOLAÑOS MD
[2021-04-08 14:26] LABS: Hematocrit 38.2 % (40-54); Hemoglobin 12.8 g/dL (13.0-16.5); Mean Corp Hgb Conc 33.5 g/dL (32-36); Mean Corpuscular Hgb 31.6 pg (27.0-32.0); Mean Corpuscular Volume 94.3 fL (80-94); Mean Platelet Vol. 12.1 fl (6.2-12.0); POSITIVE COUNT YES; Platelet Count 86 K/mm3 (150-450); RBC Distribution Width SD 48.5 fl (35.1-43.9); Red Blood Count 4.05 M/mm3 (4.6-6.2); White Blood Count 5.8 K/mm3 (4.4-11.0)
[2021-04-08 14:29] LABS: Scan Indicated on CBC? Y/N YES- FLAGS NOTED
[2021-04-08 14:32] LABS: International Normalized Ratio 1.3; Partial Thromboplast Time 36.1 Seconds (24.1-36.2); Prothrombin Time (Protime)PT. 15.2 SECONDS (11.7-14.9)
[2021-04-08 14:52] LABS: ALB/GLOB Ratio 0.6 RATIO (0.9-2.4); AST(SGOT) 48 U/L (15-37); Alanine Aminotransfer ALT/SGPT 54 U/L (16-61); Albumin, Serum 2.8 g/dL (3.2-5.0); Alkaline Phosphatase 117 U/L (45-117); Anion Gap 5 (5-15); BUN 26 mg/dL (7-18); BUN/Creat Ratio 19.8 RATIO (10-20); Calcium,Total 9.3 mg/dL (8.5-10.1); Chloride 109 mmol/L (98-107); Creatinine, Serum 1.31 mg/dL (0.70-1.30); EST Glomerular Filtration Rate 55 mL/min (>60); Est Glom Filt Rate - Afr Amer 67 mL/min (>60); Globulin 4.4 g/dL (2.2-4.2); Glucose 121 mg/dL (74-106); Magnesium 2.1 mg/dL (1.6-2.6); Phosphorus 3.7 mg/dL (2.5-4.9); Potassium 4.8 mmol/L (3.5-5.1); Protein, Total 7.2 g/dL (6.4-8.2); Sodium Level 140 mmol/L (136-145)
[2021-04-08 14:53] LABS: Hemoglobin A1c 5.9 % (3.8-5.6)
[2021-04-10] VITALS (10 sets, daily range): BP systolic 96–127; BP diastolic 49–77; PULSE 45–67; RESP 14–16; TEMP 36–36.7; O2SAT 97–100; BMI 25.2
[2021-04-10] MEDS: Lactated Ringers 1,000 ML 15 ML IV ×2 (08:26→11:16)
[2021-04-10] MEDS: Cefazolin 2 GM in 0.9% Normal Saline 100 ML IV (10:11)
--- NOTE | 2021-04-10 10:15 | BLB_PTH ---
PATIENT: RENUKA CONLEY LOC: [facility] U#:[id number] AGE/SX: 86/M ROOM: RE04/10/[address]: Dr. Raphael Peraza MD : 1935 BED: DIS: 04/10/2021 SPEC #: [id number] RECD: 04/10/21 13:36 STATUS: KRISTIAN CUMMINS #: [id number] ROXANN: 04/10/21 10:[address]: Raphael Peraza DEPT: SURGICAL PATHOLOGY RECD BY: Alysia Ace ENTERED: 04/11/21 12:23 SP TYPE: TURB OTHR DR: Dr. Nicholas Woody MD Tissues: Urinary bladder, NOS Procedures: Surgery Specimen Level V HEADER OPERATION: Cysto, transurethral resection bladder, [place], ureteroscopy PRE-OP DIAGNOSIS: Malignant neoplasm of trigone of bladder TISSUE SUBMITTED: Bladder tumor MICROSCOPIC DIAGNOSIS Bladder tumor, TUR: Negative for carcinoma. See comment. SJ:emelia 04/12/2021 COMMENT The specimen entirely consists of lamina propria and detrusor muscle. Epithelium is denuded. No evidence of carcinoma in the submitted specimen. Please make reference to previous specimen ([id number]) bladder tumor, TUR with diagnosis of ?papillary urothelial carcinoma.? MICROSCOPIC DESCRIPTION Slides are reviewed. GROSS DESCRIPTION Received in fixative is one container labeled with the patient's name and designated bladder tumor. The specimen consists of a piece of dempsey soft tissue measuring 0.7 x 0.7 x 0.3 cm. One minute fragment of dempsey soft tissue is also noted measuring 0.2 x 0.2 x 0.1 cm. The entire specimen is submitted in one cassette. / MARI:emelia 04/11/21 TC:5 CPT: 38432
--- NOTE | 2021-04-10 10:53 | HP.PCM_ITS ---
HPI - General HPI Narrative RENUKA CONLEY, is a 86 M who presents transurethral resection of a large bladder tumor and ureteroscopy suspicion of tumor up the ureter [facility] Medical History (Updated 04/03/21 @ 09:31 by Leah Hemphill) Anemia with low platelet count Anxiety Arthritis Cancer Cataract Cirrhosis Diabetes Difficulty chewing Easy bruising Excessive bleeding Former smoker Hard of hearing Hard of hearing High cholesterol Hypertension Leg cramps Macular degeneration Restless legs TIA (transient ischemic attack) Walker as ambulation aid Wears glasses Home Medications Janumet 1 tab PO DAILY 09/26/20 [History Last Taken 10/02/20 09:00] atorvastatin 40 mg PO QHS 09/26/20 [History Last Taken 10/02/20 09:00] finasteride [Proscar] 5 mg PO DAILY 09/26/20 [History Last Taken 10/02/20 09:00] furosemide 20 mg PO DAILY 09/26/20 [History Last Taken 10/02/20 09:00] glimepiride 2 mg PO PRN PRN 09/26/20 [History Last Taken Unknown] nadolol [Corgard] 40 mg PO DAILY 09/26/20 [History Last Taken 10/03/20 08:00] calcium carbonate-vitamin D3 [Calcium 500 With D] 1 tab PO BID 10/07/20 [History Last Taken Unknown] esomeprazole magnesium 40 mg PO DAILY 04/03/21 [History Last Taken Unknown] spironolactone 50 mg PO DAILY 04/03/21 [History Last Taken Unknown] Allergy/AdvReac Type Severity Reaction Status Date / Time alfuzosin Allergy Other Verified 04/03/21 09:04 aspirin [ASA] Allergy Other Verified 04/03/21 09:04 ibuprofen Allergy Other Verified 04/03/21 09:04 vitamin E (d-alpha Allergy Other Verified 04/03/21 09:05 tocopherol) BLOOD THINNERS Allergy Other Uncoded 04/03/21 09:04 Family History (Updated 10/07/20 @ 10:[address] Aziza Escalera MD) Mother Hypertension Father Hypertension Surgical History (Updated 04/03/21 @ 09:31 by Leah Hemphill) History of bladder surgery History of cholecystectomy History of coronary artery stent placement History of knee joint replacement Hx of cardiac cath Hx of foot surgery Social History (Updated 10/07/20 @ 10:[address] Aziza Escalera MD) household members: spouse Smoking Status: Former smoker details: No EtOH usage. substance use type: does not use Vital Signs Vital Signs Vital Signs: 04/10/21 08:20 Temperature 98.1 F Temperature Source Temporal Pulse Rate 54 L Respiratory Rate 16 Respiratory Pattern Normal Blood Pressure 127/68 H Blood Pressure Mean 87 Blood Pressure Source Monitor Blood Pressure Position Semi-Fowlers Blood Pressure Location Left Arm Pulse Ox 100 Oxygen Delivery Method Room Air Weight Weight: 71 kg Body Mass Index (BMI) 25.2 Results Lab / Micro Data Result Diagrams: 04/08/21 13:27 04/08/21 13:27
--- NOTE | 2021-04-10 10:53 | PCM.DC ---
Discharge Instructions Diet Discharge Diet: No restrictions Activity Discharge Activity: Return to Normal Activity and May Not Drive (while taking narcotic pain medications.) Dressing / Incision Call your doctor if you observe: Fever of 101 or Higher Follow Up Care Please Follow Up With: Raphael Perzaa MD When: Call [phone] for an appointment Test Results: Test results from this visit will be discussed in further detail at your follow-up appointment, if applicable. Discharge Plan Admission Primary Reason for Your Visit: resection of bladder cancer Attending Provider: Raphael Peraza Primary Care Provider: Nicholas Woody Instructions Patient Instructions: Discharge Instructions for ... Discharge Orders/Prescriptions Prescriptions: Continued atorvastatin 40 mg tablet 40 mg PO QHS RF: 0 glimepiride 2 mg tablet 2 mg PO PRN PRN (Reason: DIABETES) RF: 0 nadolol [Corgard] 40 mg tablet 40 mg PO DAILY RF: 0 furosemide 20 mg tablet 20 mg PO DAILY RF: 0 Hold Instructions: Resume on 10/23/20. Hold until repeat BMP as outpatient/follow up with PCP finasteride [Proscar] 5 mg tablet 5 mg PO DAILY RF: 0 Janumet 50-500 mg tablet 1 tab PO DAILY RF: 0 calcium carbonate-vitamin D3 [Calcium 500 With D] 500 mg(1,250mg) -400 unit Tablet 1 tab PO BID RF: 0 esomeprazole magnesium 40 mg capsule,delayed release(DR/EC) 40 mg PO DAILY RF: 0 spironolactone 50 mg tablet 50 mg PO DAILY RF: 0 Other Ambulatory Orders: 12 Lead EKG (Routine) Location: None Selected Ordered By: Dr. Niels Carr Referrals / Follow Up: Raphael Peraza MD [STAFF PHYSICIAN] - Nicholas Woody MD [Primary Care Provider] - Disposition Disposition (needs filled in before D/C Order can be placed): Home, Self Care
--- NOTE | 2021-04-10 10:54 | OP.PCM_ITS ---
Report of Operation Date of Procedure: 04/10/21 Pre-Operative Diagnosis: Bladder cancer involving the bladder neck right trigone right lateral wall Post-Operative Diagnosis: Same Surgery/Procedure Performed:: Transurethral resection of a large bladder tumor involving the trigone right lateral wall bladder neck, resection of ureteral orifice and right ureteroscopy no stent Description of Surgical Findings:: Indication is an 86-year-old male with a history of bladder cancer on cystoscopy was found to have recurrence the recurrence involved multiple areas in the bladder he had recurrence of the bladder neck circumferentially around the anterior part of the bladder neck he had recurrence in the trigone area in the lateral wall the bladder and the trigone around the ureteral orifice there was a concern that the tumor was involved up in the ureter to today presents for resection of the bladder tumors and ureteroscopy for diagnostic check in the bladder ureter and kidney and bladder. Patient was taken back to the operating room after smooth induction of general anesthesia he was placed in dorsolithotomy position. The penis testicles were prepped and draped in usual sterile fashion he had a hypospadias went into the bladder with a 21 Upper Sorbian rigid cystourethroscope the entire length the urethra was normal the prostate was normal inside the bladder identified the trigone the left ureteral orifice was normal the right one was very difficult to find there was an area of tissue on the right lateral wall it appeared to be a trigone there was also tumors coming from the right lateral wall tumors at the bladder neck circumferentially tumors in the trigone area this a large area involved with his tumor so I then switched over the resectoscope and resected the tumors at the bladder neck resect the tumors in the trigone resect the tumors laterally there was a small obturator reflex but no major perforation of the bladder I then cauterized this area extensively I was searching for the right ureter orifice extensively could not find it so then I resected deeper in the trigone on the right side and sure enough the ureter orifices were then unroofed and the orifice was then opened and patent. I then cannulated the right ureter orifice with a wire advanced a wire up in the kidney over the wire went in with a flexible ureteroscope was able to check the entire length of the ureter all the way from the kidney down to the bladder there was fortunately no tumors along the course of the ureter the ureter was clear and all the tumors were resected within the bladder. Patient anesthetic was reversed and he'll go home with a catheter as long as he can urinate and I'll see him back in a few weeks for checkup. Surgeon: harriett Type of Anesthesia: General Admit VTE Documentation VTE Present on Admission: No VTE Mechan Device Prophylaxis: SCD's VTE Pharm Prophylaxis ordered?: No
[2021-04-10 11:55] LABS: Bedside Glucose 116 mg/dL (70-110)
[2021-04-10 14:21] LABS: Bedside Glucose 104 mg/dL (70-110)
== END 2021-04-10 15:12 | disposition home or self-care (01) ==
LOC: SDC 07:52 → AC 07:52
PROVIDERS: Anesthesiology; PCP Family Medicine; Referring Provider Urology; Visit Provider Urology
PROC: 0TBB8ZZ Excision of Bladder, Via Natural or Artificial Opening Endoscopic (ICD-10-PCS; CPT 52240; principal; 2021-04-10 10:05)
DX: D30.3 Benign neoplasm of bladder (principal); I10 Essential (primary) hypertension; F41.9 Anxiety disorder, unspecified; M19.90 Unspecified osteoarthritis, unspecified site; K74.60 Unspecified cirrhosis of liver; E11.36 Type 2 diabetes mellitus with diabetic cataract; H35.30 Unspecified macular degeneration; E78.00 Pure hypercholesterolemia, unspecified; G25.81 Restless legs syndrome; Z86.73 Personal history of transient ischemic attack (TIA), and cerebral infarction without residual deficits; Z95.5 Presence of coronary angioplasty implant and graft; Z79.84 Long term (current) use of oral hypoglycemic drugs; Z79.82 Long term (current) use of aspirin; Z79.899 Other long term (current) drug therapy; Z87.891 Personal history of nicotine dependence
CPT/HCPCS: 52240; 36415; 80053; 82248; 82962; 83036; 83735; 84100; 85027; 85610; 85730; 88307; 93005; J7120; C1769

== ENCOUNTER 2021-09-06 09:29 | Day surgery (SDC) | payer MEDICARE, SELFPAY ==
[2021-09-06] VITALS (8 sets, daily range): BP systolic 100–134; BP diastolic 51–66; PULSE 46–94; RESP 16–18; TEMP 36.1–36.3; O2SAT 97–100; BMI 23.8
[2021-09-06] MEDS: Lactated Ringers 1,000 ML 15 ML IV (10:27)
[2021-09-06 10:46] LABS: Bedside Glucose 138 mg/dL (74-106)
[2021-09-06 10:51] LABS: POSITIVE COUNT YES; POSITIVE MORPHOLOGY YES; Platelet Count 75 K/mm3 (150-450)
[2021-09-06 11:11] LABS: Potassium 4.4 mmol/L (3.5-5.1)
--- NOTE | 2021-09-06 11:45 | BLB_PTH ---
PATIENT: RENUKA CONLEY LOC: [facility] U#:[id number] AGE/SX: 86/M ROOM: RE09/06/[address]: Dr. Raphael Peraza MD : 1935 BED: DIS: 09/06/2021 SPEC #: [id number] RECD: 09/06/21 15:16 STATUS: KRISTIAN MARIA G #: [id number] ROXANN: 09/06/21 11:[address]: Raphael Peraza DEPT: SURGICAL PATHOLOGY RECD BY: Alysia Ace ENTERED: 09/09/21 09:38 SP TYPE: TURB OTHR DR: Dr. Nicholas Woody MD Tissues: Urinary bladder, NOS Procedures: Surgery Specimen Level V HEADER OPERATION: Transurethral resection of bladder tumor with Olympus PRE-OP DIAGNOSIS: Multiple bladder tumors TISSUE SUBMITTED: Bladder tumor MICROSCOPIC DIAGNOSIS Urinary bladder, biopsy: Chronic cystitis. AM:emelia 09/10/2021 MICROSCOPIC DESCRIPTION Slides are reviewed. GROSS DESCRIPTION Received in fixative is one container labeled with the patient's name and designated bladder tumor. The specimen consists of two irregular fragments of dempsey soft tissue that in aggregate measure 0.5 x 0.5 x 0.1 cm. The specimen is totally submitted in one cassette. / AM:emelia 09/09/2021 TC:3 CPT: 89924
[2021-09-06] MEDS: Cefazolin 2 GM in 0.9% Normal Saline 100 ML IV (12:20)
--- NOTE | 2021-09-06 12:49 | PCM.HP.STD ---
HPI - General HPI Narrative RENUKA CONLEY, is a 86 M who presents for turbt [facility] Medical History (Updated 08/30/21 @ 14:49 by Gerri Santana) Anemia with low platelet count Anxiety Arthritis Bruising Cancer Cardiology follow-up encounter Cataract Cirrhosis Depression Diabetes Dietary restriction Difficulty swallowing Former smoker Gastric reflux Hard of hearing Hard of hearing High cholesterol History of echocardiogram Hx of Clostridium difficile infection Hypertension Leg cramps Macular degeneration Restless legs TIA (transient ischemic attack) Walker as ambulation aid Wears glasses Home Medications Janumet 1 tab PO DAILY 09/26/20 [History Last Taken 10/02/20 09:00] atorvastatin 40 mg PO QHS 09/26/20 [History Last Taken 10/02/20 09:00] finasteride [Proscar] 5 mg PO DAILY 09/26/20 [History Last Taken 10/02/20 09:00] furosemide 20 mg PO QODAY 09/26/20 [History Last Taken 10/02/20 09:00] glimepiride 2 mg PO PRN PRN 09/26/20 [History Last Taken Unknown] nadolol [Corgard] 40 mg PO DAILY 09/26/20 [History Last Taken 09/06/21] calcium carbonate-vitamin D3 [Calcium 500 With D] 1 tab PO DAILY 10/07/20 [History Last Taken Unknown] esomeprazole magnesium 40 mg PO DAILY 04/03/21 [History Last Taken 09/06/21] spironolactone 50 mg PO DAILY 04/03/21 [History Last Taken Unknown] Probiotic 3,000 mmu cells PO DAILY 09/02/21 [History Last Taken Unknown] ciprofloxacin HCl [Cipro] 500 mg PO BID #10 tab 09/06/21 [Rx Last Taken Unknown] Allergy/AdvReac Type Severity Reaction Status Date / Time alfuzosin Allergy Other Verified 09/06/21 10:15 aspirin [ASA] Allergy Other Verified 09/06/21 10:15 ibuprofen Allergy Other Verified 09/06/21 10:15 vitamin E (d-alpha Allergy Other Verified 09/06/21 10:15 tocopherol) BLOOD THINNERS Allergy Other Uncoded 09/06/21 10:15 Family History (Updated 10/07/20 @ 10:[address] Aziza Escalera MD) Mother Hypertension Father Hypertension Surgical History (Updated 08/30/21 @ 14:49 by Gerri Santana) History of bladder surgery History of cholecystectomy History of coronary artery stent placement History of knee joint replacement Hx of appendectomy Hx of cardiac cath Hx of cystoscopy Hx of foot surgery Social History (Updated 10/07/20 @ 10:[address] Aziza Escalera MD) household members: spouse Smoking Status: Former smoker details: No EtOH usage. substance use type: does not use Vital Signs Vital Signs Vital Signs: 09/06/21 10:17 Temperature 97.4 F L Temperature Source Temporal Pulse Rate 50 L Respiratory Rate 16 Respiratory Pattern Normal Blood Pressure 115/63 Blood Pressure Mean 80 Blood Pressure Source Monitor Blood Pressure Position Supine Blood Pressure Location Right Arm Pulse Ox 97 Oxygen Delivery Method Room Air Weight Weight: 69 kg Body Mass Index (BMI) 23.8 Results Lab / Micro Data Result Diagrams: 09/06/21 10:11 Labs: Laboratory Results - last 24 hr 09/06/21 10:03: POC Glucose 138 H 09/06/21 10:11: Potassium 4.4 09/06/21 10:11: Plt Count 75 L
--- NOTE | 2021-09-06 12:49 | PCM.DC ---
Discharge Instructions Diet Discharge Diet: No restrictions Activity Discharge Activity: Return to Normal Activity and May Not Drive (while taking narcotic pain medications.) Dressing / Incision Call your doctor if you observe: Fever of 101 or Higher Follow Up Care Please Follow Up With: Raphael Peraza MD When: Call [phone] for an appointment Test Results: Test results from this visit will be discussed in further detail at your follow-up appointment, if applicable. Discharge Plan Admission Primary Reason for Your Visit: turbt Attending Provider: Raphael Peraza Primary Care Provider: Nicholas Woody Instructions Patient Instructions: Discharge Instructions for ... Discharge Orders/Prescriptions Prescriptions: New ciprofloxacin HCl [Cipro] 500 mg tablet 500 mg PO BID Qty: 10 RF: 0 Continued atorvastatin 40 mg tablet 40 mg PO QHS RF: 0 glimepiride 2 mg tablet 2 mg PO PRN PRN (Reason: DIABETES) RF: 0 nadolol [Corgard] 40 mg tablet 40 mg PO DAILY RF: 0 furosemide 20 mg tablet 20 mg PO QODAY RF: 0 Hold Instructions: Resume on 10/23/20. Hold until repeat BMP as outpatient/follow up with PCP finasteride [Proscar] 5 mg tablet 5 mg PO DAILY RF: 0 Janumet 50-500 mg tablet 1 tab PO DAILY RF: 0 calcium carbonate-vitamin D3 [Calcium 500 With D] 500 mg(1,250mg) -400 unit Tablet 1 tab PO DAILY RF: 0 esomeprazole magnesium 40 mg capsule,delayed release(DR/EC) 40 mg PO DAILY RF: 0 spironolactone 50 mg tablet 50 mg PO DAILY RF: 0 Probiotic 3 billion cell Capsule 3,000 mmu cells PO DAILY RF: 0 Referrals / Follow Up: Raphael Peraza MD [STAFF PHYSICIAN] - Nicholas Woody MD [Primary Care Provider] - Disposition Disposition (needs filled in before D/C Order can be placed): Home, Self Care
--- NOTE | 2021-09-06 12:49 | PCM.OPRPT ---
Report of Operation Date of Procedure: 09/06/21 Pre-Operative Diagnosis: Bladder cancer recurrent multiple areas multifocal Post-Operative Diagnosis: Same Surgery/Procedure Performed:: Transurethral resection of bladder tumor instillation mitomycin-C Description of Surgical Findings:: Patient presented to the hospital for treatment of a tumor that was found in the bladder with a very large bladder tumor. Patient understands is possible it may not be able to resect the entire tumor. Patient also understands is possible that the patient may need multiple procedures or more invasive procedures to cure him of this cancer. Patient was taken back to the operating room after smooth induction of anesthesia the patient was placed supine on the table. The patient was placed in dorsolithotomy position. The urethra and genitals prepped and draped in usual sterile fashion. I went into the bladder with a 30 degree lens and a cystoscope and identified the tumor the tumor was about 3.5 centimeters in size and occupying mostly the posterior wall and dome of the bladder. The right and left ureteral orifice were identified. The tumor was not involved in the ureteral orifice. I then placed the resectoscope and the bladder and resected the entire tumor down to the muscle. And then cauterized the resection base to obtained hemostasis. We then placed the catheter in the bladder and the patient was taken back to the PACU in stable condition. Surgeon: harriett Type of Anesthesia: General Admit VTE Documentation VTE Present on Admission: No VTE Mechan Device Prophylaxis: SCD's VTE Pharm Prophylaxis ordered?: No
== END 2021-09-06 23:59 | disposition home or self-care (01) ==
LOC: SDC 09:32 → AC 09:35 → MS3 14:22
PROVIDERS: Anesthesiology; PCP Family Medicine; Referring Provider Urology; Visit Provider Urology
PROC: 0T5B8ZZ Destruction of Bladder, Via Natural or Artificial Opening Endoscopic (ICD-10-PCS; CPT 51720; principal; 2021-09-06 11:35)
DX: C67.9 Malignant neoplasm of bladder, unspecified (principal); K74.60 Unspecified cirrhosis of liver; E11.9 Type 2 diabetes mellitus without complications; N30.20 Other chronic cystitis without hematuria; Z79.84 Long term (current) use of oral hypoglycemic drugs; Z87.891 Personal history of nicotine dependence; E78.00 Pure hypercholesterolemia, unspecified; Z79.82 Long term (current) use of aspirin; I10 Essential (primary) hypertension; Z79.899 Other long term (current) drug therapy; F41.9 Anxiety disorder, unspecified; F32.A Depression, unspecified; K21.9 Gastro-esophageal reflux disease without esophagitis; Z86.19 Personal history of other infectious and parasitic diseases; Z86.73 Personal history of transient ischemic attack (TIA), and cerebral infarction without residual deficits; G25.81 Restless legs syndrome; Z95.5 Presence of coronary angioplasty implant and graft; Z86.2 Personal history of diseases of the blood and blood-forming organs and certain disorders involving the immune mechanism; N40.0 Benign prostatic hyperplasia without lower urinary tract symptoms
CPT/HCPCS: 52235; 82962; 84132; 85049; 88307; J2405; J3490; J9280

== ENCOUNTER 2022-02-12 16:26 | Observation (INO) | payer MEDICARE, SELFPAY ==
[2022-02-12] VITALS (9 sets, daily range): BP systolic 138–166; BP diastolic 67–90; PULSE 47–57; RESP 12–18; TEMP 36.1–36.8; O2SAT 97–100; BMI 23.5
[2022-02-12] MEDS: Lactated Ringers 1,000 ML 15 ML IV ×2 (10:25→15:18)
[2022-02-12 10:43] LABS: International Normalized Ratio 1.2; Partial Thromboplast Time 35.8 Seconds (24.1-36.2); Prothrombin Time (Protime)PT. 15.3 SECONDS (11.7-14.9)
[2022-02-12 10:49] LABS: Phosphorus 3.5 mg/dL (2.5-4.9)
[2022-02-12 10:50] LABS: Bedside Glucose 113 mg/dL (74-106)
--- NOTE | 2022-02-12 11:45 | BLB_PTH ---
PATIENT: RENUKA CONLEY LOC: [facility] U#:[id number] AGE/SX: 86/M ROOM: [facility] [place] RE02/12/[address]: Dr. Raphael Peraza MD : 1935 BED: 1 DIS: 02/13/2022 SPEC #: [id number] RECD: 02/13/22 06:37 STATUS: KRISTIAN CUMMINS #: [id number] ROXANN: 02/12/22 11:[address]: Raphael Peraza DEPT: SURGICAL PATHOLOGY RECD BY: Alysia Ace ENTERED: 02/13/22 08:05 SP TYPE: TURB OTHR DR: Dr. Nicholas Woody MD Tissues: Urinary bladder, NOS Procedures: Surgery Specimen Level V HEADER OPERATION: TURBT with Olympus, large with Mitomycin C PRE-OP DIAGNOSIS: Malignant neoplasm of overlapping sites of bladder TISSUE SUBMITTED: Bladder tumor chips MICROSCOPIC DIAGNOSIS Bladder tumor, transurethral resection of bladder tumor: Noninvasive papillary urothelial carcinoma. See cancer summary in the comment section. SJ:rg 02/14/2022 COMMENT BLADDER CANCER (TUR) SUMMARY Procedure: Transurethral resection of bladder tumor (TURBT) Tumor site: Not specified Histologic type: Papillary urothelial carcinoma, noninvasive Histologic grade: Low grade (1/3) Muscularis propria presence: Scant amount of muscularis propria (detrusor muscle) is present and free of tumor. Lymphvascular invasion: Not identified Tumor extension: Noninvasive papillary urothelial carcinoma Additional pathologic findings: Mild chronic inflammation. Clinical history: Please make reference to previous specimens ([id number]), bladder tumor, TUR with diagnosis of ?papillary urothelial carcinoma? and ([id number]) urinary bladder, biopsy with diagnosis of ?papillary urothelial carcinoma.? The above summary is in compliance with College of Stateless Pathology (CAP) Cancer Protocols Checklist and Stateless Joint Committee on Cancer (AJCC), Staging Manual, 8th Ed. Case has been reviewed in consultation with Dr. Garrett who concurs with the above diagnosis. IDC:AM MICROSCOPIC DESCRIPTION Slides are reviewed. GROSS DESCRIPTION Received in fixative is one container labeled with the patient's name and designated bladder tumor chips. The specimen consists of multiple irregular fragments of dempsey soft tissue that in aggregate measure 2 x 0.5 x 0.1 cm. The specimen is totally submitted in one cassette. / MARI:emelia 02/13/2022 TC:0 CPT: 80581
[2022-02-12] MEDS: Cefazolin 2 GM in 0.9% Normal Saline 100 ML IV (12:40)
--- NOTE | 2022-02-12 13:42 | HP.PCM_ITS ---
HPI - General General Date of Service: 02/12/22 Chief Complaint: Bladder cancer HPI Narrative RENUKA CONLEY, is a 86 M who presents for resection of multiple tumors in the bladder with a large tumors over 5 cm in size in total [facility] Medical History Anemia with low platelet count Anxiety Arthritis Bruising Cancer Cardiology follow-up encounter Cataract Cirrhosis Depression Diabetes Dietary restriction Difficulty swallowing Former smoker Gastric reflux Hard of hearing Hard of hearing High cholesterol History of echocardiogram Hx of Clostridium difficile infection Hypertension Leg cramps Macular degeneration Restless legs TIA (transient ischemic attack) Walker as ambulation aid Wears glasses Home Medications atorvastatin 40 mg tablet 40 mg PO QHS 09/26/20 [History Last Taken 10/02/20 09:00] finasteride 5 mg tablet (Proscar) 5 mg PO DAILY 09/26/20 [History Last Taken 10/02/20 09:00] furosemide 20 mg tablet 20 mg PO QODAY 09/26/20 [History Last Taken 10/02/20 09:00] glimepiride 2 mg tablet 2 mg PO PRN PRN DIABETES 09/26/20 [History Last Taken Unknown] nadolol 40 mg tablet (Corgard) 40 mg PO DAILY 09/26/20 [History Last Taken 09/06/21] sitagliptin 50 mg-metformin 500 mg tablet (Janumet) 1 tab PO DAILY 09/26/20 [History Last Taken 10/02/20 09:00] calcium carbonate 500 mg-vitamin D3 10 mcg (400 unit) tablet (Calcium 500 With D) 1 tab PO DAILY 10/07/20 [History Last Taken Unknown] esomeprazole magnesium 40 mg capsule,delayed release 40 mg PO DAILY 04/03/21 [History Last Taken 09/06/21] spironolactone 50 mg tablet 50 mg PO DAILY 04/03/21 [History Last Taken Unknown] lactobacillus combination no.4 3 billion cell capsule (Probiotic) 3,000 mmu cells PO DAILY 09/02/21 [History Last Taken Unknown] magnesium oxide 400 mg (241.3 mg magnesium) tablet (MagOx) 400 mg PO DAILY 02/06/22 [History Last Taken Unknown] vitamin B complex 1 cap PO DAILY 02/06/22 [History Last Taken Unknown] ciprofloxacin HCl 500 mg tablet (Cipro) 500 mg PO BID #14 tabs 02/12/22 [Rx Last Taken Unknown] Allergy/AdvReac Type Severity Reaction Status Date / Time alfuzosin Allergy Other Verified 09/06/21 10:15 aspirin [ASA] Allergy Other Verified 09/06/21 10:15 bee pollen Allergy Anaphylaxis Verified 02/06/22 09:52 ibuprofen Allergy Other Verified 09/06/21 10:15 vitamin E (d-alpha Allergy Other Verified 09/06/21 10:15 tocopherol) BLOOD THINNERS Allergy Other Uncoded 09/06/21 10:15 Family History (Updated 10/07/20 @ 10:[address] Aziza Escalera MD) Mother Hypertension Father Hypertension Surgical History History of bladder surgery History of cholecystectomy History of coronary artery stent placement History of knee joint replacement Hx of appendectomy Hx of cardiac cath Hx of cystoscopy Hx of foot surgery Social History (Updated 10/07/20 @ 10:[address] Aziza Escalera MD) household members: spouse Smoking Status: Former smoker details: No EtOH usage. substance use type: does not use Vital Signs Vital Signs Vital Signs: 02/12/22 10:20 02/12/22 10:20 Temperature 96.9 F L Temperature Source Temporal Pulse Rate 56 L Respiratory Rate 16 Respiratory Pattern Normal Blood Pressure 157/74 H Blood Pressure Mean 101 Blood Pressure Source Monitor Blood Pressure Position Semi-Fowlers Blood Pressure Location Right Arm Pulse Ox 99 Oxygen Delivery Method Room Air Weight Weight: 66 kg Body Mass Index (BMI) 23.5 Results Lab / Micro Data Labs: Laboratory Results - last 24 hr 02/12/22 10:10: PT 15.3 H, INR 1.2, APTT 35.8 02/12/22 10:10: Phosphorus 3.5, Magnesium 2.0 02/12/22 10:30: POC Glucose 113 H
--- NOTE | 2022-02-12 13:43 | DCINST_ITS ---
Discharge Instructions Diet Discharge Diet: No restrictions and Light diet - advance as tolerated Activity Discharge Activity: Return to Normal Activity Follow Up Care Please Follow Up With: Raphael Peraza MD When: Follow-up in 2 weeks Test Results: Test results from this visit will be discussed in further detail at your follow- up appointment, if applicable. Discharge Plan Admission Primary Reason for Your Visit: resection of bladder cancer Attending Provider: Raphael Peraza Primary Care Provider: Nicholas Woody Instructions Patient Instructions: Bladder Cancer TUR Discharge Orders/Prescriptions Prescriptions: New ciprofloxacin HCl [Cipro] 500 mg tablet 500 mg PO BID Qty: 14 0RF Continued atorvastatin 40 mg tablet 40 mg PO QHS Label Comments: take 1 tablet by mouth once daily glimepiride 2 mg tablet 2 mg PO PRN PRN (Reason: DIABETES) Label Comments: take 1 tablet by mouth once daily nadolol [Corgard] 40 mg tablet 40 mg PO DAILY Label Comments: take 1 tablet by mouth once daily as directed furosemide 20 mg tablet 20 mg PO QODAY Hold Instructions: Resume on 10/23/20. Hold until repeat BMP as outpatient/follow up with PCP Label Comments: take 1 tablet by mouth every other day finasteride [Proscar] 5 mg tablet 5 mg PO DAILY Janumet 50-500 mg tablet 1 tab PO DAILY Label Comments: take 1 tablet by mouth once daily calcium carbonate-vitamin D3 [Calcium 500 With D] 500 mg(1,250mg) -400 unit Tablet 1 tab PO DAILY esomeprazole magnesium 40 mg capsule,delayed release(DR/EC) 40 mg PO DAILY spironolactone 50 mg tablet 50 mg PO DAILY Probiotic 3 billion cell Capsule 3,000 mmu cells PO DAILY magnesium oxide [MagOx] 400 mg (241.3 mg magnesium) Tablet 400 mg PO DAILY vitamin B complex Capsule 1 cap PO DAILY Referrals / Follow Up: Raphael Peraza MD [Med Staff - Active Staff] - Nicholas Woody MD [Primary Care Provider] - Disposition Disposition (needs filled in before D/C Order can be placed): Home, Self Care
--- NOTE | 2022-02-12 13:43 | PCM.OPRPT ---
Report of Operation Date of Procedure: 02/12/22 Pre-Operative Diagnosis: Multiple bladder tumors greater than 5 cm in size throughout the bladder Post-Operative Diagnosis: Same Surgery/Procedure Performed:: Transurethral resection of multiple bladder tumors large Description of Surgical Findings:: 86-year-old gentleman has a history of bladder cancer has been on surveillance he is then treated with resections in the past and Mitomycin-C and BCG in the past recently in the office I did a cystoscopy and found he had multiple tumors in the bladder and the base of the trigone in the right lateral wall up in the dome though these tumors in total measure greater than 5 cm in size so today organ to do a resection. Patient was taken back to the operating room at the smooth duction of general anesthesia he was placed in dorsolithotomy position. Penis and testicles were prepped and draped in usual sterile fashion. Went in the bladder with a 24 Vietnamese noncontinuous flow Olympus bipolar resectoscope he did have a hypospadias, and once I got into the bladder identified all the tumors quite extensive amount of disease in it I proceeded with a resectoscope and resected all these tumors extensive bladder cancer involving the right lateral wall left lateral wall trigone area and dome a long time was taken to resect all these tumors and multiple evacuations all the clots cauterized most of the tumors a sample size was quite small what looked like superficial noninvasive tumors sent off a specimen off to the pathologist, after cauterizing resecting all these tumors then we placed Mitomycin-C in the bladder and the postop. Patient anesthetic was reversed taken back to PACU good condition with a catheter while the catheter removed as long as he can urinate okay with a catheter he go home without 1 but he may have to go home with a catheter sensitive extensive amount of resection of the bladder. I think he will get a need more BCG therapy and maintenance BCG to control his cancer. Surgeon: Raphael Peraza Type of Anesthesia: General Drains: del rosario Admit VTE Documentation VTE Present on Admission: No VTE Mechan Device Prophylaxis: SCD's
--- NOTE | 2022-02-12 14:45 | SUR.PHASEI ---
PATIENT HAD A CATHETER NOT ATTACHED TO A BAG THAT WAS CLAMPED. THIS NURSE WAS TOLD TO REMOVE CATHETER IN ONE HOUR. A SYRINGE WAS ATTACHED TO THE CATHETER BALLOON TO REMOVE BALLOON WATER AFTER UNCLAMPING, AND NO WATER CAME OUT. A LARGE AMOUNT OF FLUID PRESUMABLY THE MITOMYCIN CAME OUT OF THE CATHETER INTO A CHUX. SOME BLOOD WAS NOTED ALSO. THE CHUX AND CATHETER DISPOSED OF USING VIA HAZADOUS DRUG POLICY INTO THE PROPER CONTAINER IN THE DIRTY UTILITY ROOM.
[2022-02-12] MEDS: 0.9% Normal Saline 1,000 ML 50 ML IV (18:52)
[2022-02-12] MEDS: Polyethylene Glycol 3350 17 GM PACKET PO (22:03)
[2022-02-12] MEDS: Atorvastatin Calcium 40 MG Tablet PO (22:04)
[2022-02-13 03:00] VITALS: BP 124/61; PULSE 60; RESP 14; TEMP 36.6; O2SAT 99
[2022-02-13 06:51] LABS: Bedside Glucose 116 mg/dL (74-106)
--- NOTE | 2022-02-13 07:38 | PCM.PN.GU ---
Subjective Subjective Status post transurethral section of bladder tumors, last night was not able to urinate we kept him overnight for observation Tobar catheter was placed this morning is draining stacy-colored urine no clots he can go home with a catheter to let the bladder heal and can see him in the office in 10 days. Objective Data Objective Data Vital Signs: Vital Signs Temp Pulse Resp BP Pulse Ox O2 Del Method 98 F 60 14 124/61 H 99 Room Air 02/13/22 03:00 02/13/22 03:00 02/13/22 03:00 02/13/22 03:00 02/13/22 03:00 02/13/22 03:00 Oxygen Delivery Method Room Air Weight: 66 kg Body Mass Index (BMI) 23.5 Intake & Output: Intake and Output for Last 24 Hours 02/11/22 02/12/22 02/13/22 23:59 23:59 23:59 Intake Total 1500 / 1500 Output Total 50 / 500 770 / 770 Balance 1450 / 1000 -770 / -770 Lab / Micro Data Labs: Laboratory Results - last 24 hr 02/12/22 10:10: PT 15.3 H, INR 1.2, APTT 35.8 02/12/22 10:10: Phosphorus 3.5, Magnesium 2.0 02/12/22 10:30: POC Glucose 113 H 02/13/22 06:20: POC Glucose 116 H
[2022-02-13] MEDS: Calcium Carb/Vitamin D 1 TABLET Tablet PO (08:57)
[2022-02-13] MEDS: metFORMIN HCl 500 MG Tablet 1000 MG PO (08:57)
[2022-02-13 09:00] VITALS: BP 115/62; PULSE 64; RESP 16; TEMP 37.1
[2022-02-13] MEDS: Nadolol 40 MG Tablet PO (09:40)
[2022-02-13] MEDS: Finasteride 5 MG Tablet PO (09:40)
[2022-02-13] MEDS: Spironolactone 50 MG Tablet PO (09:40)
[2022-02-13] MEDS: Magnesium Chloride 64 MG Delay Rel.Tablet 128 MG PO (09:40)
[2022-02-13] MEDS: Pantoprazole Sodium 40 MG Tablet PO (09:41)
[2022-02-13] MEDS: LINAGLIPTIN 5 MG TABLET PO (09:41)
[2022-02-13] MEDS: Furosemide 20 MG Tablet PO (09:43)
--- NOTE | 2022-02-13 10:48 | PHA.DC.MC ---
Pharmacy Service has performed discharge medication reconciliation and counseling for this patient. The patient was counseled on the following discharge medications and changes in medications for homegoing were reviewed. 1. CIPRO The Reason for Use, instructions for use, and potential side effects were reviewed for all new medications. The patient's questions regarding all of their medications were answered. The patient was able to verbally demonstrate an understanding of their discharge medications. Home Medications atorvastatin 40 mg tablet 40 mg PO QHS 09/26/20 finasteride 5 mg tablet (Proscar) 5 mg PO DAILY 09/26/20 furosemide 20 mg tablet 20 mg PO QODAY 09/26/20 glimepiride 2 mg tablet 2 mg PO PRN PRN DIABETES 09/26/20 nadolol 40 mg tablet (Corgard) 40 mg PO DAILY 09/26/20 sitagliptin 50 mg-metformin 500 mg tablet (Janumet) 1 tab PO DAILY 09/26/20 calcium carbonate 500 mg-vitamin D3 10 mcg (400 unit) tablet (Calcium 500 With D) 1 tab PO DAILY 10/07/20 esomeprazole magnesium 40 mg capsule,delayed release 40 mg PO DAILY 04/03/21 spironolactone 50 mg tablet 50 mg PO DAILY 04/03/21 lactobacillus combination no.4 3 billion cell capsule (Probiotic) 3,000 mmu cells PO DAILY 09/02/21 magnesium oxide 400 mg (241.3 mg magnesium) tablet (MagOx) 400 mg PO DAILY 02/06/22 vitamin B complex 1 cap PO DAILY 02/06/22 ciprofloxacin HCl 500 mg tablet (Cipro) 500 mg PO BID #14 tabs 02/12/22 The patient's discharge medication list was reviewed for discrepancies and discrepancies were resolved.
--- NOTE | 2022-02-13 11:07 | CASEMGMT ---
RN CM NOTE: Discharge order is in. Per RAO Rehman, pt's will be coming in this AM for F/C care/teaching. No further home-going/discharge planning needs identified at this time. Sherie to inform RN АНДРЕЙ if any needs/concerns arise. Carlos BSN RN CM
[2022-02-13 11:43] VITALS: BP 112/58; PULSE 62; RESP 16; TEMP 36.9
== END 2022-02-13 12:33 | disposition home or self-care (01) ==
LOC: SDC 16:31 → MS3 16:31
PROVIDERS: Anesthesiology; Admitting Provider Urology; PCP Family Medicine; Referring Provider Urology; Visit Provider Urology
PROC: 0T5B8ZZ Destruction of Bladder, Via Natural or Artificial Opening Endoscopic (ICD-10-PCS; CPT 51720; principal; 2022-02-12 11:35)
DX: C67.9 Malignant neoplasm of bladder, unspecified (principal); D69.6 Thrombocytopenia, unspecified; E11.9 Type 2 diabetes mellitus without complications; Z87.891 Personal history of nicotine dependence; I10 Essential (primary) hypertension; Z79.84 Long term (current) use of oral hypoglycemic drugs; E78.00 Pure hypercholesterolemia, unspecified; Z79.899 Other long term (current) drug therapy; M19.90 Unspecified osteoarthritis, unspecified site; F41.9 Anxiety disorder, unspecified; F32.A Depression, unspecified; K21.9 Gastro-esophageal reflux disease without esophagitis; S60.229A Contusion of unspecified hand, initial encounter; W19.XXXA Unspecified fall, initial encounter; I49.1 Atrial premature depolarization; I44.0 Atrioventricular block, first degree
CPT/HCPCS: 52240; 00912; 51702; 82962; 83735; 84100; 85610; 85730; 88307; 99218; J7030; J7120; G0378; J2405; J3490; J9280

== ENCOUNTER 2022-02-16 13:08 | Emergency (ER) | payer MEDICARE, SELFPAY ==
[2022-02-16 13:09] VITALS: BP 122/55; PULSE 63; RESP 16; TEMP 36.1; O2SAT 100; BMI 23.3
--- NOTE | 2022-02-16 14:09 | EX.ED.DYSGE1 ---
HPI <MILVIA Crawford - Last Filed: 02/16/22 15:29> History of Present Illness Chief Complaint: Complaint Narrative Narrative: 86-year-old male has bladder cancer and urologic surgery on February [address] Peraza and was discharged home with a Tobar. His attempted to change a device on the catheter today and is concerned it's not working correctly. It has been draining pink-tinged urine which she said they were told is expected postop. He has no abdominal pain. <Dr. Casimiro Ruiz MD - Last Filed: 02/16/22 15:13> History of Present Illness Informant: patient and family Onset/Context/Timing Onset: Today PFSH <MILVIA Crawford - Last Filed: 02/16/22 15:29> [facility] Medical History Anemia with low platelet count Anxiety Arthritis Bruising Cancer Cardiology follow-up encounter Cataract Cirrhosis Depression Diabetes Dietary restriction Difficulty swallowing Former smoker Gastric reflux Hard of hearing Hard of hearing High cholesterol History of echocardiogram Hx of Clostridium difficile infection Hypertension Leg cramps Macular degeneration Restless legs TIA (transient ischemic attack) Walker as ambulation aid Wears glasses Home Medications atorvastatin 40 mg tablet 40 mg PO QHS 09/26/20 [History Last Taken 10/02/20 09:00] finasteride 5 mg tablet (Proscar) 5 mg PO DAILY 09/26/20 [History Last Taken 10/02/20 09:00] furosemide 20 mg tablet 20 mg PO QODAY 09/26/20 [History Last Taken 10/02/20 09:00] glimepiride 2 mg tablet 2 mg PO PRN PRN DIABETES 09/26/20 [History Last Taken Unknown] nadolol 40 mg tablet (Corgard) 40 mg PO DAILY 09/26/20 [History Last Taken 09/06/21] sitagliptin 50 mg-metformin 500 mg tablet (Janumet) 1 tab PO DAILY 09/26/20 [History Last Taken 10/02/20 09:00] calcium carbonate 500 mg-vitamin D3 10 mcg (400 unit) tablet (Calcium 500 With D) 1 tab PO DAILY 10/07/20 [History Last Taken Unknown] esomeprazole magnesium 40 mg capsule,delayed release 40 mg PO DAILY 04/03/21 [History Last Taken 09/06/21] spironolactone 50 mg tablet 50 mg PO DAILY 04/03/21 [History Last Taken Unknown] lactobacillus combination no.4 3 billion cell capsule (Probiotic) 3,000 mmu cells PO DAILY 09/02/21 [History Last Taken Unknown] magnesium oxide 400 mg (241.3 mg magnesium) tablet (MagOx) 400 mg PO DAILY 02/06/22 [History Last Taken Unknown] vitamin B complex 1 cap PO DAILY 02/06/22 [History Last Taken Unknown] ciprofloxacin HCl 500 mg tablet (Cipro) 500 mg PO BID #14 tabs 02/12/22 [Rx Last Taken Unknown] Allergy/AdvReac Type Severity Reaction Status Date / Time alfuzosin Allergy Other Verified 09/06/21 10:15 aspirin [ASA] Allergy Other Verified 09/06/21 10:15 bee pollen Allergy Anaphylaxis Verified 02/06/22 09:52 ibuprofen Allergy Other Verified 09/06/21 10:15 vitamin E (d-alpha Allergy Other Verified 09/06/21 10:15 tocopherol) BLOOD THINNERS Allergy Other Uncoded 09/06/21 10:15 Family History (Updated 10/07/20 @ 10:[address] Aziza Escalera MD) Mother Hypertension Father Hypertension Surgical History History of bladder surgery History of cholecystectomy History of coronary artery stent placement History of knee joint replacement Hx of appendectomy Hx of cardiac cath Hx of cystoscopy Hx of foot surgery Social History household members: spouse Smoking Status: Former smoker details: No EtOH usage. substance use type: does not use ROS <MILVIA Crawford - Last Filed: 02/16/22 15:29> ROS ED ROS Narrative Constitutional: Negative for fever, chills, malaise. Eyes: Negative for visual change. ENT: Negative for sore throat, ear pain, rhinorrhea. CVS: Negative for palpitations, chest pain, syncope. Respiratory: Negative for shortness of breath, cough, orthopnea. GI: Negative for abdominal pain, nausea, vomiting. : Positive for hematuria. Neuro: Negative for headache, motor/sensory dysfunction. Skin: Negative for rash, abscess, or wound. Musc: Negative for joint pain, swelling, trauma. Heme: Negative for easy bruising, bleeding, lymphadenopathy. <Dr. Casimiro Ruiz MD - Last Filed: 02/16/22 15:13> ROS ED Constitutional Constitutional ED: Denies chills or fever(s) Eyes Eyes: Denies change in vision or diplopia ENT ENT ED: Denies rhinorrhea or sore throat Cardiovascular Cardiovascular: Denies chest pain or palpitations Respiratory/Chest Respiratory/Chest: Denies cough or dyspnea Gastrointestinal Gastrointestinal: Denies abdominal pain, diarrhea, nausea or vomiting Genitourinary Genitourinary ED: Denies dysuria or hematuria Musculoskeletal Musculoskeletal: Denies back pain or neck pain Integumentary Denies abscess or rash Neurologic Neurologic: Denies headache(s), paresthesias or weakness Psychiatric Psychiatric: Denies anxiety or suicidal thoughts EXAM <MILVIA Crawford - Last Filed: 02/16/22 15:29> Physical Exam Narrative Exam Narrative: CONST: Patient sitting in no acute distress. EYES: Normal inspection. NECK: Normal inspection. RESP: No respiratory distress, CTAB. CVS: Regular rate and rhythm, no murmur, no gallop. ABD: Soft and nontender, no guarding or rebound, nondistended. : Indwelling Tobar is intact and draining with yellow urine. SKIN: Color normal, no rash, warm, dry, intact. EXTREMITIES: Normal appearance, no pedal edema. NEURO: Oriented x4. PSYCH: Normal affect. Const Vital Signs: 02/16/22 13:09 Temperature 96.9 F L Temperature Source Temporal Pulse Rate 63 Respiratory Rate 16 Blood Pressure 122/55 H Blood Pressure Mean 77 Pulse Ox 100 Oxygen Delivery Method Room Air <Dr. Casimiro Ruiz MD - Last Filed: 02/16/22 15:13> Physical Exam Const Vital Signs: 02/16/22 13:09 Temperature 96.9 F L Temperature Source Temporal Pulse Rate 63 Respiratory Rate 16 Blood Pressure 122/55 H Blood Pressure Mean 77 Pulse Ox 100 Oxygen Delivery Method Room Air Positive well nourished and well developed General Appearance ED: well developed and NAD HEENT Reports moist mucous membranes normocephalic and atraumatic Eyes PERRL and EOMs intact bilaterally Neck full ROM and supple Resp normal respiratory effort and clear to auscultation bilaterally Cardio regular rate, regular rhythm and no murmurs GI non-tender and non-distended Auscultation: normoactive bowel sounds Palpation: soft Back/Spine no CVA tenderness General Back: other FROM Extremity normal to inspection General Extremety ED: Negative for edema, pulses abnormal or tenderness General Extremity: Negative for edema or pulses abnormal Neuro oriented x3, CN's II-XII intact bilaterally and no sensory deficits noted Sensorium / Orientation: awake and alert Motor Exam: strength 5/5 throughout Skin no rashes or lesions noted and no wounds MDM <MILVIA Crawford - Last Filed: 02/16/22 15:29> [facility] Treatment and Re-Evaluation Narrative: Tobar is in place and is draining yellow urine. It was flushed easily here and patient was reassured it is in working order and was discharged home. <Dr. Casimiro Ruiz MD - Last Filed: 02/16/22 15:13> [facility] Narrative Medical decision making narrative: Seen and evaluated independently and in conjunction with physician laboratory assistant. Agree with notes above unless documented otherwise. Patient doing well. Abdomen benign. Tobar is in place, at this time draining transparent yellow nonbloody urine. His was confused about the positioning of the catheter and the sticker, clamped, etc. to keep it attached to his thigh. She was confused about the port that we use for the balloon, I advised her not to use that for flushing. Nurses flushed it without any difficulty, they are both reassured and discharged home in stable condition. Discharge Plan Triage Chief Complaint: Complaint ED Midlevel Provider: Rosey Robison ED Provider: Casimiro Ruiz Dx/Rx/DC Orders Clinical Impression: Encounter for medical screening examination, Tobar catheter in place Instructions: ED Tobar Catheter, Care Prescriptions: No Action atorvastatin 40 mg tablet 40 mg PO QHS Label Comments: take 1 tablet by mouth once daily glimepiride 2 mg tablet 2 mg PO PRN PRN (Reason: DIABETES) Label Comments: take 1 tablet by mouth once daily nadolol [Corgard] 40 mg tablet 40 mg PO DAILY Label Comments: take 1 tablet by mouth once daily as directed furosemide 20 mg tablet 20 mg PO QODAY Hold Instructions: Resume on 10/23/20. Hold until repeat BMP as outpatient/follow up with PCP Label Comments: take 1 tablet by mouth every other day finasteride [Proscar] 5 mg tablet 5 mg PO DAILY Janumet 50-500 mg tablet 1 tab PO DAILY Label Comments: take 1 tablet by mouth once daily calcium carbonate-vitamin D3 [Calcium 500 With D] 500 mg(1,250mg) -400 unit Tablet 1 tab PO DAILY esomeprazole magnesium 40 mg capsule,delayed release(DR/EC) 40 mg PO DAILY spironolactone 50 mg tablet 50 mg PO DAILY Probiotic 3 billion cell Capsule 3,000 mmu cells PO DAILY magnesium oxide [MagOx] 400 mg (241.3 mg magnesium) Tablet 400 mg PO DAILY vitamin B complex Capsule 1 cap PO DAILY ciprofloxacin HCl [Cipro] 500 mg tablet 500 mg PO BID Qty: 14 0RF Primary Care Provider: Nicholas Woody Referrals: Raphael Peraza MD [Med Staff - Active Staff] - Nicholas Woody MD [Primary Care Provider] - Disposition Disposition: Home, Self Care
--- NOTE | 2022-02-16 15:24 | ED.RN ---
THOMPSON CATHETER IRRIGATED. WILL CONTINUE TO MONITOR.
== END 2022-02-16 15:36 | disposition home or self-care (01) ==
PROVIDERS: Emergency Provider Emergency Medicine; PCP Family Medicine; Visit Provider Emergency Medicine
DX: Z43.6 Encounter for attention to other artificial openings of urinary tract (principal); K74.60 Unspecified cirrhosis of liver; C67.9 Malignant neoplasm of bladder, unspecified; E11.9 Type 2 diabetes mellitus without complications; Z87.891 Personal history of nicotine dependence; E78.00 Pure hypercholesterolemia, unspecified; I10 Essential (primary) hypertension; F41.9 Anxiety disorder, unspecified; F32.A Depression, unspecified; K21.9 Gastro-esophageal reflux disease without esophagitis; Z86.73 Personal history of transient ischemic attack (TIA), and cerebral infarction without residual deficits; Z79.84 Long term (current) use of oral hypoglycemic drugs; Z79.899 Other long term (current) drug therapy; G25.81 Restless legs syndrome; Z95.5 Presence of coronary angioplasty implant and graft
CPT/HCPCS: 99283

== ENCOUNTER → 2022-10-10 | Outpatient (CLI) | payer MEDICARE, SELFPAY ==
--- NOTE | 2022-10-10 09:13 | US_ITS ---
PROCEDURE: Ultrasound guided paracentesis. DATE OF EXAMINATION: October 10, 2022. INDICATION: Male, 87 years old. Ascites. PHYSICIAN: Nghia Hernandez M.D. TECHNIQUE: The risks, benefits, and alternatives to the procedure were explained to the patient. The specific risks of bleeding, infection, and damage to bowel were detailed and accepted. Witnessed informed consent was obtained. The abdomen was ultrasonographically surveyed. An appropriate pocket of fluid was identified at the right lower quadrant. The skin were cleaned and prepped in the usual sterile fashion. Using ultrasound guidance, the peritoneal cavity was accessed with a 5-[place] paracentesis needle/catheter system. The trocar was removed. A total of 6950 ml of stacy-colored fluid were removed from the peritoneal cavity. The catheter was removed and a sterile dressing was applied. The procedure was well tolerated. US/Paracentesis with US IMPRESSION: Ultrasound guided paracentesis. Electronically Signed: Nghia Hernandez MD at 11:39 EDT ,
[2022-10-10 09:50] VITALS: BP 120/60; BP 122/68; BP 127/61; BP 136/74; PULSE 63; PULSE 67; PULSE 75; PULSE 78; RESP 18; TEMP 36.5; O2SAT 100; O2SAT 98; O2SAT 99
[2022-10-10] MEDS: Lidocaine 2% (20 ml mdv) 20 ML Vial INFILT (09:55)
[2022-10-10] MEDS: 0.9% Saline Lock 10 ML Syringe IV ×2 (10:40→12:16)
--- NOTE | 2022-10-10 12:03 | NURSING ---
discussed scheduling future appts with . she states it has been years since pt was drained last. card left with to call and schedule if pt needs drained again. verbalizes understanding.
[2022-10-10] MEDS: Albumin Human 25% (100 mL) 25 GM/100 ML BAG IV (12:16)
[2022-10-10 12:20] VITALS: BMI 25.8
[2022-10-10] MEDS: Albumin Human 25% (50 mL) 12.5 GM/50 ML IV.SOLN IV (13:41)
[2022-10-10 14:43] VITALS: BP 116/54; PULSE 70; RESP 16
--- NOTE | 2022-10-24 12:03 | CASEMGMT ---
RN Care Management: Referral received from sleep medicine physician's regarding patient being new to paracentesis procedure and the expressing feelings of being overwhelmed. Call placed and pt's Dorys answered and relayed that pt was currently sleeping. Initial assesment completed as follows: PCP: Dr. Woody Specialists: Dr. Hunt (appt 10/21/22), and [facility] (eye injections) Insurance: [facility] Prescription benefit: yest Preferred Pharmacy: [facility] in [place] Living arrangements: Pt lives with his spouse in a two story home with a first floor set up. Pt requires assistance with ADLs and uses a walker for ambulation. Pt's assists pt with urinal use during the night as well as assists with pt moving from a lying to a sitting position. Transportation: Pt does not drive, drives short distances only. DIL provides transportation to appointments. Family assists with obtaining groceries, etc. SNF: has been to a SNF in the past Pt's states pt has been sleeping through the day and night for the past couple of days but feels pt is more alert today. States pt does take a couple of naps during the day. They have two sons that live in close proximity to their home and assist them as needed with household tasks. Pt's is able to prepare meals and complete indoor household tasks including laundry. Pt's assists with medication management. Meds: Discussed new prescriptions including midodrine and lactulose. Pt's states pt has been taking the midodrine but they have not received or know about the lactulose. Follow-up testing: Pt's states pt is scheduled for an abd CT on Thursday the . They have not received the results of the blood work take on 10/21. Diet: Discussed diet recommendations. Pt's states she is trying to get more protein into his diet by preparing fish related meals and pt is drinking Ensure. Pt's is aware of need to restrict Na and states she is buying low sodium foods. This RN CM confirmed with pt's that she has the phone number to contact for any identified needs. At this time, pt's states she is able to care for pt with the assistance of her family and is awaiting the results of the testing ordered by Dr. Hunt for further determination of pt's condition. This RN CM phoned Dr. Hunt's office and received the nurse line voicemail. Message left requesting clarification of the lactulose and informed of the 's report of pt sleeping throughout the day and night. Return call requested with phone number provided. Will continue to assist pt and his as condition, prognosis, and needs are further defined. Tamika Pereira RN CM
--- NOTE | 2022-11-03 13:10 | CASEMGMT ---
RAO CHIANG: Call received from pt's Dorys requesting results of pt's abdominal CT. Noted results available in the EMR. Call placed to Meryl at Dr. Hunt's office who states she will contact pt on this date (10/03/22) to review findings. Second call received from pt's while speaking with Meryl. Pt's left a message stating pt was c/o increased abd pain, states he will not be able to tolerate it much longer. Pt's described pt's respirations as being shallow and rapid. This information was conveyed to Meryl who recommended pt receive a paracentesis. Noted pt with PRN paracentesis order present from his PCP. Call placed to Deya and arrangements made for paracentesis at 1430 this afternoon. Pt's notified and states she can obtain transportation for pt to make this appointment. Discussed need for additional assistance at home (Home health [facility] care or nonskilled [facility]) with pt's who states she does not need any assistance and states pt does not want anyone else in the home but pt's . Meryl notified of this conversation and that pt will be having paracentesis this afternoon at 1430. Will continue to assist with coordination of care as plan of care and goals of care are determined after discussion of results by Dr. Hunt's office with pt and pt's . Tamika Pereira RN CM
== END | disposition home or self-care (01) ==
PROVIDERS: PCP Family Medicine; Referring Provider Family Medicine; Visit Provider Family Medicine
DX: R18.8 Other ascites (principal)
CPT/HCPCS: 96365; 49083; P9047; A4216

== ENCOUNTER → 2022-10-21 | Outpatient (CLI) | payer MEDICARE, SELFPAY ==
[2022-10-21 15:24] LABS: Absolute Lymphocyte Count 0.37 X10^3/uL (0.83-4.51); Absolute Neutrophil Count 5.1 X10^3/uL (2.0-7.7); Basophil# 0.03 X10^3/uL; Basophil% 0.5 % (0-1); Eosinophil# 0.05 X10^3/uL; Eosinophils% 0.8 % (0-5); Hematocrit 36.4 % (40-54); Hemoglobin 12.3 g/dL (13.0-16.5); Lymphocyte # 0.37 X10^3/ul (0.83-4.51); Lymphocyte % 6.1 % (19-41); Mean Corp Hgb Conc 33.8 g/dL (32-36); Mean Corpuscular Hgb 31.5 pg (27.0-32.0); Mean Corpuscular Volume 93.1 fL (80-94); Mean Platelet Vol. 10.5 fl (6.2-12.0); Monocyte# 0.47 X10^3/uL; Monocyte% 7.8 % (0-10); NRBC Flagged by Analyzer 0 % (0-5); Neutrophil # 5.07 X10^3/uL (2.7-7.7); POSITIVE COUNT YES; POSITIVE DIFFERENTIAL YES; Platelet Count 97 K/mm3 (150-450); RBC Distribution Width CV 14.3 % (11.6-14.6); RBC Distribution Width SD 48.9 fl (35.1-43.9); Red Blood Count 3.91 M/mm3 (4.6-6.2)
[2022-10-21 15:26] LABS: Differential Indicated SCAN CRITERIA MET
[2022-10-21 15:32] LABS: International Normalized Ratio 1.3; Prothrombin Time (Protime)PT. 16.2 SECONDS (11.7-14.9)
[2022-10-21 16:02] LABS: Differential Comment SCANNED
[2022-10-21 16:03] LABS: ALB/GLOB Ratio 0.7 RATIO (0.9-2.4); AST(SGOT) 41 U/L (15-37); Alanine Aminotransfer ALT/SGPT 39 U/L (16-61); Albumin, Serum 2.8 g/dL (3.2-5.0); Alkaline Phosphatase 197 U/L (45-117); Anion Gap 7 (5-15); BUN 39 mg/dL (7-18); BUN/Creat Ratio 23.1 RATIO (10-20); Calcium,Total 8.4 mg/dL (8.5-10.1); Chloride 108 mmol/L (98-107); Creatinine, Serum 1.69 mg/dL (0.70-1.30); EST Glomerular Filtration Rate 41 mL/min (>60); Est Glom Filt Rate - Afr Amer 50 mL/min (>60); Globulin 3.9 g/dL (2.2-4.2); Glucose 132 mg/dL (74-106); Platelet Estimate MOD DEC (ADEQ); Potassium 4.1 mmol/L (3.5-5.1); Protein, Total 6.7 g/dL (6.4-8.2); Sodium Level 138 mmol/L (136-145)
[2022-10-23 04:07] LABS: AFP, Tumor Marker 3.7 ng/mL (0.0-6.4); Carbohydrate AG 19-9 < 2 U/mL (0-35); Carcinoembryonic Antigen 7.6 ng/mL (0.0-4.7)
== END | disposition home or self-care (01) ==
PROVIDERS: PCP Family Medicine; Referring Provider Internal Medicine Gastroenterology; Visit Provider Internal Medicine Gastroenterology
DX: N17.9 Acute kidney failure, unspecified (principal); K74.60 Unspecified cirrhosis of liver
CPT/HCPCS: 36415; 80053; 82105; 82140; 82378; 85025; 85610; 86301

== ENCOUNTER → 2022-10-29 | Outpatient (CLI) | payer MEDICARE, SELFPAY ==
--- NOTE | 2022-10-29 15:43 | CT_ITS ---
STUDY: CT ABDOMEN AND PELVIS WITH AND WITHOUT CONTRAST REASON FOR EXAM: Male, 87 years old. Triple phase, cirrhosis/bladder cancer RADIATION DOSAGE (If Supplied By Facility): CTDIvol = ( 20.01 ) mGy, DLP = ( 3126.46 ) mGycm TECHNIQUE: Transaxial images were obtained from the dome of the diaphragm to the symphysis pubis without oral contrast. IV 100mL Isovue-300 was administered. Sagittal and coronal images were reconstructed. Individualized dose optimization techniques were used for this CT. COMPARISON: Comparison is made with prior study dated October 07, 2020. FINDINGS: Small bilateral pleural effusions right greater than left. Mild bibasilar atelectasis. Coronary artery calcification. There is a diffuse contour abnormality of the liver consistent with cirrhotic changes. There are surgical clips in the gallbladder fossa consistent with a prior cholecystectomy. There is moderate splenomegaly. 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 Normal pancreas. Diffuse ascites. Normal bilateral adrenal glands. Mild degree of right hydronephrosis and hydroureter. Small cyst in the lower pole of the right kidney. Normal left kidney. Normal visualized stomach. Normal small intestine. There are multiple colonic diverticula consistent with diverticulosis. The appendix is visualized and appears normal. There is diffuse atherosclerotic calcification of the abdominal aorta and its major visceral branches, without a demonstrated aneurysm. Normal inferior vena cava. Normal retroperitoneum. Normal urinary bladder. Moderate-sized left inguinal hernia containing fluid in nondilated portion of the sigmoid colon. There are diffuse degenerative changes of the visualized lumbar spine. CT/CT Abd/Pelvis W/WO Contrast IMPRESSION: Diffuse ascites. Cirrhotic appearance of the liver. 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 Mild degree of right hydronephrosis and right hydroureter. Electronically Signed: Nghia Hernandez MD at 10:21 EDT ,
--- NOTE | 2022-10-30 14:00 | CASEMGMT ---
RAO CHIANG Care Coordination Note: Call placed to pt's at this time to inquire about how pt is doing. states he's Not doing so hot, stating his stomach is big again and that his foot is bothering him. She states his stomach has been getting bigger since the paracentesis on 10/10 and that she has called Dr Hunt's office and left them a VM about this and is awaiting a return call. She states his foot does not bother him as much when he is awake, but when he is sleeping he drags his feet across the sheets and he can't help it. She said it is mostly the right side of his foot that gets painful and she has been putting some OTC cream on it. RAO CHIANG inquired if it is red or swollen and states I can't tell. She states this has been on-going for a couple of weeks and she forgot to have the doctor look at it during his last appt. states pt has an appt with his foot doctor on 11/17, is scheduled for lab work on 11/19 and then is to see Dr Woody on 11/26. RAO CHIANG inquired if would like assistance w/getting pt in sooner than 11/26. states she wishes to talk w/pt first to inquire what he wants to do before scheduling a sooner appt. stats pt has still been tired, but is not sleeping as much as he had been. reports she is confused about the medication she picked up yesterday @ [facility], Lactulose. She read the instructions on the bottle and it states to give 30 ml, but they did not give her a medicine cup to measure it out and she does not have a way to get back to the pharmacy at this time, as she does not like to drive much. She states her dtr-in-law works and is not always available. ROA CHIANG informed her that 30 ml is equal to 2 T and she is aware this is ordered for twice a day. states she will measure it out and give to pt, but she is not sure if he will like it. inquired about the reason for this medication and RAO CHIANG provided education on importance of taking. Pt's next scheduled appt w/Dr Hunt is not until January, per . states she is waiting to hear back from Dr Hunt re: results of the CT scan pt had done yesterday and she plans to discuss concern re: pt's abdomen getting bigger at that time. denies needing any further assistance from RN АНДРЕЙ at this time and denies having further questions. confirms she has RAO Pereira's contact info and advised to contact her if she needs any further assistance or has further questions. She voices understanding. Carlos WIGGINS RN CM
--- NOTE | 2022-10-30 16:03 | CASEMGMT ---
RAO CM: Call received from pt's requesting clarification on frequency of taking the lactulose. Reinforced need to take it twice day, once in the morning and then again in the evening around supper time. Pt's expressed understanding. No additional needs voiced. Tamika Pereira RN CM
== END | disposition home or self-care (01) ==
LOC: CT 15:42
PROVIDERS: PCP Family Medicine; Referring Provider Internal Medicine Gastroenterology; Visit Provider Internal Medicine Gastroenterology
DX: K74.60 Unspecified cirrhosis of liver (principal)
CPT/HCPCS: 74178; Q9967

== ENCOUNTER → 2022-11-03 | Outpatient (CLI) | payer MEDICARE, SELFPAY ==
--- NOTE | 2022-11-03 14:21 | US_ITS ---
PROCEDURE: Ultrasound guided paracentesis. DATE OF EXAMINATION: November 03, 2022. INDICATION: Male, 87 years old. Ascites. PHYSICIAN: Nghia Hernandez M.D. TECHNIQUE: The risks, benefits, and alternatives to the procedure were explained to the patient. The specific risks of bleeding, infection, and damage to bowel were detailed and accepted. Witnessed informed consent was obtained. The abdomen was ultrasonographically surveyed. An appropriate pocket of fluid was identified at the right lower quadrant. The skin were cleaned and prepped in the usual sterile fashion. Using ultrasound guidance, the peritoneal cavity was accessed with a 5-Serbian paracentesis needle/catheter system. The trocar was removed. A total of 7700 ml of stacy-colored fluid were removed from the peritoneal cavity. The catheter was removed and a sterile dressing was applied. The procedure was well tolerated. US/Paracentesis with US IMPRESSION: Ultrasound guided paracentesis. Electronically Signed: Nghia Hernandez MD at 15:28 EDT ,
[2022-11-03 14:31] VITALS: BP 126/41; BP 131/77; PULSE 62; PULSE 68; RESP 18; RESP 22; TEMP 36.2; O2SAT 100
[2022-11-03] MEDS: Lidocaine 2% (20 ml mdv) 20 ML Vial INFILT (14:40)
--- NOTE | 2022-11-04 16:07 | CASEMGMT ---
RAO CM: Call received from pt's Dorys who states she spoke with Dr. Hunt's office and they have agreed to hospice services and are interested in the placement of a Pleurx catheter. Call placed to Dr. Hunt's office and voicemail message left for Meryl to coordinate/assist with these referrals as needed. Tamika Pereira RN CM
== END | disposition home or self-care (01) ==
LOC: US 14:18
PROVIDERS: PCP Family Medicine; Referring Provider Family Medicine; Visit Provider Family Medicine
DX: R18.8 Other ascites (principal)
CPT/HCPCS: 49083